=== PATIENT | female | born 1935 | race Caucasian/White ===

== ENCOUNTER 2017-10-02 21:52 | Inpatient (IN) ==
[2017-10-03] MEDS ORDERED: Naloxone 0.4 MG/ML INJ IVP PRN (00:38)
[2017-10-03] MEDS ORDERED: Lacri-Lube 3.5 GM TUBE BOTH EYES PRN (00:39)
--- NOTE | 2017-10-03 00:56 | Internal Med History&Physical ---
<Amisha Anguiano - Last Filed: 10/03/17 02:51> Date of Encounter: 10/03/17 Time of Encounter: 00:55 Assessment and Plan (1) Acute respiratory failure Current visit: No Status: Acute Patient presented to [place] ED complaining of 3 days increased shortness of breath along and cough with sputum production. In the ED she developed respiratory distress and was then intubated. This is most likely secondary to community acquired pneumonia Continue full mechanical ventilatory support ABG pending repeat CXR in AM consult pulmonology Qualifiers: Respiratory failure complication: hypoxia Qualified Code(s): J96.01 - Acute respiratory failure with hypoxia (2) Pneumonia Current visit: Yes Status: Suspected Likely community acquired pneumonia CXR demonstrated bronchial wall thickening that is consistent with edema or atypical infection. WBC 17.1 plan: Levaquin Solu-Medrol Legionella and strep pneumoniae pending respiratory infectious panel pending sputum culture pending from [place] ED repeat CXR in AM Qualifiers: Pneumonia type: due to Pneumococcus Laterality: bilateral Lung location: lower lobe of lung Qualified Code(s): J13 - Pneumonia due to Streptococcus pneumoniae (3) Sepsis Current visit: Yes Status: Suspected Most likely secondary to community acquired pneumonia. Received aggressive IVF hydration at [place] ED. 2 SIRS: tachycardia, WBC 17.1 afebrile, lactic acid 1.7 caution with IVF due to CHF Blood cultures and sputum culture taken at [place] ED, will await those results. Continue IV Levaquin Qualifiers: Sepsis type: Pneumococcus Qualified Code(s): A40.3 - Sepsis due to Streptococcus pneumoniae (4) SHARRI (acute kidney injury) Current visit: Yes Status: Acute SHARRI most likely prerenal due to dehydration. Creatinine 1.34 monitor I&O avoid nephrotoxic agents monitor serum creatinine (5) COPD (chronic obstructive pulmonary disease) Current visit: Yes Status: Acute History of COPD. Uses oxygen occasionally at night. Ordered albuterol, Symbicort, Solu-Medrol Qualifiers: COPD type: chronic bronchitis Chronic bronchitis type: unspecified Qualified Code(s): J42 - Unspecified chronic bronchitis (6) Hypertension, essential Current visit: No Status: Acute History of hypertension taking lisinopril holding lisinopril due to a SHARRI and low BP (7) Atrial fibrillation Current visit: No Status: Acute History of A fib on anticoagulation with xarelto and rate control with Cardizem holding Cardizem due to low blood pressure. HR 71 Continue xarelto Qualifiers: Atrial fibrillation type: unspecified Qualified Code(s): I48.91 - Unspecified atrial fibrillation (8) CHF (congestive heart failure) Current visit: Yes Status: Acute Chronic CHF diastolic. Not an exacerbation ECHO 2015 LVEF 50% holding Lasix due to SHARRI BNP pending Qualifiers: Heart failure type: diastolic Heart failure chronicity: chronic Qualified Code(s): I50.32 - Chronic diastolic (congestive) heart failure (9) DVT prophylaxis Current visit: No Status: Acute Continue homes xarelto Internal Medicine - H&P: HPI Chief complaint: Dyspnea Admitted From: Hospital to Hospital Transfer Plans for Post Hospital Care: Home History of present illness: Ms. Younger is a 82 year old female with PMH COPD, Afib on anticoagulation, CHF, HTN presented to [facility] as a transfer from [place] [facility] due to acute respiratory distress requiring intubation. Upon examination she is intubated however her son and daughter at bedside and are able to give the history. She had gone to the ED complaining of 3 days of shortness of breath. She also reported increased cough with sputum production and sore throat. Her daughter stated that she had given her mother Tylenol severe cold and flu but it did not provide relief. Her daughter reported that the patient did not complaining of chest pain, palpitations, fever, chills, nausea, vomiting, abdominal pain, diarrhea, melena. She is on 2 L of oxygen occasionally at night. She denied history of sick contacts, hospitalizations, falls. Her last hospitalization was 2 years ago for pneumonia. She has gotten her flu and pneumonia vaccination. Her son and daughter report that she has a full code. Past Med Surg Social Fam HX - Past Medical History Medical history: atrial fibrillation, CHF, COPD, hypertension, osteoporosis Psychiatric history: no psych history - Past Surgical History Surgical History: non-contributory - Social History Smoking Status: Former smoker Smokeless Tobacco Status: No Alcohol use: none Drug use: none - Family History Mother Hx Family Cardiac Disorders: Yes (CHF) Internal Medicine - H&P: Meds Lisinopril [Zestril] 20 mg PO DAILY 12/26/15 [History] traMADol [Ultram] 50 mg PO TID 12/26/15 [History] Rivaroxaban [Xarelto] 20 mg PO DAILY #30 tablet 12/30/15 [Rx] Diltiazem CD (24hr) [Cardizem CD] 240 mg PO DAILY #30 cap.er.24h 12/31/15 [Rx] Albuterol Sulfate [Ventolin Hfa] 10/02/17 [History] Furosemide [Lasix] 10/02/17 [History] Umeclidinium Brm/Vilanterol Tr [Anoro Ellipta 62.5-25 Mcg INH] 10/02/17 [ History] 3 Allergy/AdvReac Type Severity Reaction Status Date / Time Penicillins [PCN] Allergy Rash Verified 12/26/15 13:41 ROS unobtainable: due to mental status All Systems PM: A 10-system review of systems was performed and is negative for pertinent findings except as documented above in the HPI. - Constitutional Vitals: Temp Pulse Resp BP Pulse Ox 98.8 F 86 16 93/45 100 10/03/17 00:30 10/03/17 00:30 10/03/17 00:39 10/03/17 00:39 10/03/17 00:39 General appearance: Present: A&O X 0, no acute distress - Head Head exam: Present: atraumatic, normocephalic - Respiratory Respiratory exam: Present: decreased breath sounds, CTAB. Absent: rales, rhonchi, wheezes - Cardiovascular Cardiovascular exam: Present: irregular rhythm. Absent: clicks - GI/Abdominal GI/Abdominal exam: Present: normal bowel sounds, soft. Absent: distended, firm - Extremities Exam Extremities exam: Present: normal inspection. Absent: cyanotic - Skin Skin exam: Present: dry, intact <Maryuri Espinosa - Last Filed: 10/03/17 03:43> Date of Encounter: 10/03/17 Time of Encounter: 01:45 Internal Medicine - H&P: HPI History of present illness: Ms. Younger is a 82 year old female All Systems PM: A 10-system review of systems was performed and is negative for pertinent findings except as documented above in the HPI. - Constitutional Vitals: Temp Pulse Resp BP Pulse Ox 98.8 F 71 12 99/41 100 10/03/17 00:30 10/03/17 03:00 10/03/17 03:18 10/03/17 03:18 10/03/17 03:18 Internal Med - H&P Results - ABG Interpretation ABG results: 10/03/17 03:28 ABG pH 7.26 L ABG pCO2 60 H ABG pO2 446 H ABG HCO3 27 ABG Total CO2 29 H ABG O2 Saturation 100 H ABG Base Excess -1 - Attending Attestation I examined this patient and my medical decision-making was reviewed with the Resident Physician, Amisha Anguiano. I agree with the documented findings, disposition and treatment plan as described with any changes as documented below 82-year-old female patient with history of essential hypertension, atrial fibrillation on anticoagulation with Xarelto, congestive heart failure presented to the ER at [facility] with complaints of shortness of breath. Symptoms have been ongoing for the past 3 days but yesterday morning , her daughter noted that she appeared to be much more weak and sicker. As such she was convinced to come to the ER. In the event hypoxemic and was placed on BiPAP. Her symptoms did not improve and she seemed to be tiring out and so was intubated and transferred over here for admission. She is presently unable to provide history as she is intubated and sedated. History is being obtained through ED records and her family was present at bedside. She is on home oxygen at 2 L that she uses occasionally at night. She has not had any recent hospitalizations. On examination, patient is sedated, ET tube is in place. S1 and S2 normal irregularly irregular rhythm. Lungs appear clear. No wheezes audible. Chest x-ray shows bibasilar infiltrates concerning for edema or pneumonia. Acute hypoxic respiratory failure: Continue vent management. Sedation with propofol and fentanyl. High risk for complications. Sepsis due to bilateral pneumonia: Continue IV antibiotics. Follow culture results. Pneumonia: Most likely community-acquired. Will check urine strep and Legionella antigens. Follow culture results. Continue Levaquin. Chronic congestive heart failure: Does not appear to be in acute exacerbation. Will check BNP and 2-D echocardiogram. Atrial fibrillation: Patient is in A. fib. Rate controlled. On anticoagulation with Xarelto. Will continue. Acute kidney injury: Patient appears to be in mild acute kidney injury. Monitor renal function. Gentle hydration. Avoid nephrotoxic agents. Critical care time 35 minutes
[2017-10-03] MEDS ORDERED: Levofloxacin 500 MG/100 ML 500 MG/100 ML BAG IVPB SCH (01:00)
[2017-10-03] MEDS: FentaNYL (PF) 1,000 MCG in 0.9 % Sodium Chloride 80 ML IVC SCH ×3 (01:30→22:45)
[2017-10-03] MEDS ORDERED: Ringers Solution, Lactated 1,000 ML IVC SCH (02:00)
--- NOTE | 2017-10-03 03:30 | Event Note ---
Date of Encounter: 10/03/17 Time of Encounter: 01:45 I examined this patient and my medical decision-making was reviewed with the Resident Physician, Amisha Anguiano. I agree with the documented findings, disposition and treatment plan as described with any changes as documented below 82-year-old female patient with history of essential hypertension, atrial fibrillation on anticoagulation with Xarelto, congestive heart failure presented to the ER at [facility] with complaints of shortness of breath. Symptoms have been ongoing for the past 3 days but yesterday morning , her daughter noted that she appeared to be much more weak and sicker. As such she was convinced to come to the ER. In the event hypoxemic and was placed on BiPAP. Her symptoms did not improve and she seemed to be tiring out and so was intubated and transferred over here for admission. She is presently unable to provide history as she is intubated and sedated. History is being obtained through ED records and her family was present at bedside. She is on home oxygen at 2 L that she uses occasionally at night. She has not had any recent hospitalizations. On examination, patient is sedated, ET tube is in place. S1 and S2 normal irregularly irregular rhythm. Lungs appear clear. No wheezes audible. Chest x-ray shows bibasilar infiltrates concerning for edema or pneumonia. Acute hypoxic respiratory failure: Continue vent management. Sedation with propofol and fentanyl. High risk for complications. Sepsis due to bilateral pneumonia: Continue IV antibiotics. Follow culture results. Pneumonia: Most likely community-acquired. Will check urine strep and Legionella antigens. Follow culture results. Continue Levaquin. Chronic congestive heart failure: Does not appear to be in acute exacerbation. Will check BNP and 2-D echocardiogram. Atrial fibrillation: Patient is in A. fib. Rate controlled. On anticoagulation with Xarelto. Will continue. Acute kidney injury: Patient appears to be in mild acute kidney injury. Monitor renal function. Gentle hydration. Avoid nephrotoxic agents.
[2017-10-03 03:38] LABS: ABG Base Excess -1 mEq/L (-2 to 3); ABG HCO3 27 mEq/L (21-27); ABG Oxygen Saturation 100 % (95-98); ABG PCO2 60 mmHg (35-45); ABG PH 7.26 pH Units (7.32-7.45); ABG PO2 446 mmHg (85-104); ABG TCO2 29 mEq/L (20-26); Blood Gas Modality PRVC; Blood Gas PEEP 5 cm H2O; Blood Gas Respiration Rate 12; Blood Gas VT 500 cc
[2017-10-03 04:36] LABS: Adenovirus Not Detected (Not Detect); Bordetella Pertussis Not Detected (Not Detect); Coronavirus 229E Not Detected (Not Detect); Coronavirus HKU1 Not Detected (Not Detect); Coronavirus NL63 Not Detected (Not Detect); Coronavirus OC43 Not Detected (Not Detect); Human Metapneumovirus Not Detected (Not Detect); Human Rhinovirus/Enterovirus Not Detected (Not Detect); Influenza A Subtype 2009 H1 Not Detected (Not Detect); Influenza A Untypeable Not Detected (Not Detect); Influenza B Not Detected (Not Detect); Parainfluenza Virus 1 Not Detected (Not Detect); Parainfluenza Virus 2 Not Detected (Not Detect); Parainfluenza Virus 3 Not Detected (Not Detect); Parainfluenza Virus 4 Not Detected (Not Detect); Respiratory Syncytial Virus Not Detected (Not Detect)
[2017-10-03 04:37] LABS: Chlamydophila pneumoniae Not Detected (Not Detect); Mycoplasma pneumoniae Not Detected (Not Detect)
[2017-10-03 04:47] LABS: Hematocrit 36.2 % (35.3-44.9); Hemoglobin 11.3 g/dL (11.5-15.4); Immature Granulocytes % 0.4 % (0-4); Lymphocytes % 7.6 %; Mean Corpuscular HGB Conc 31.2 g/dL (31.6-35.5); Mean Corpuscular Hemoglobin 29.1 pg (28.0-33.3); Mean Corpuscular Volume 93.3 fL (83.0-100.0); Monocytes % 4.2 %; Platelet Count 213 K/mcL (140-400); Red Blood Count 3.88 M/mcL (3.82-4.97); Red Cell Distribution Width 14.9 % (11.5-14.5); Segmented Neutrophils % 87.6 %
[2017-10-03 04:48] LABS: Basophils % 0.2 %; Lymphocytes # 0.9 K/mcL (0.6-4.6); Monocytes # 0.5 K/mcL (0.0-1.3)
[2017-10-03 04:56] LABS: Neutrophils # 10.3 K/mcL (1.6-8.9)
[2017-10-03] MEDS: methylPREDNISolone 125 MG/2 ML VIAL IM SCH ×3 (05:06→17:49)
[2017-10-03 05:15] LABS: Platelet Estimate Normal (Normal)
[2017-10-03 05:19] LABS: Calcium 8.8 mg/dL (8.6-10.3); Potassium 5.1 mEq/L (3.5-5.1)
[2017-10-03 07:52] LABS: Albumin 3.1 g/dL (3.5-5.7); Albumin/Globulin Ratio 0.9 (1.1-2.2); Bilirubin,Direct 0.1 mg/dL (0.0-0.2); Bilirubin,Indirect 0.2 mg/dL (0.0-1.2); Bilirubin,Total 0.3 mg/dL (0.3-1.0); Globulin 3.3 g/dL (2.4-3.5); Total Protein 6.4 g/dL (6.4-8.9)
--- NOTE | 2017-10-03 07:57 | Pulmonology Consult Note ---
<Heriberto Hyman - Last Filed: 10/03/17 17:26> Date of Encounter: 10/03/17 Time of Encounter: 07:30 Assessment and Plan (1) Acute respiratory failure Current Visit: No Status: Acute CXR shows marked change in pulmonary edema over 8 hours Echo pending to workup cardiogenic cause Treating for CAP on Levaquin monotherapy ABG pH 7.26; PCO2 60 Vent Settings: Decreased tidal volume to 440 Increased RR to 18 Minute ventilation to 7.0 Monitoring PCO2, every 10 drop in PCO2, 0.08 rise in pH Qualifiers: Respiratory failure complication: hypoxia Qualified Code(s): J96.01 - Acute respiratory failure with hypoxia (2) Pneumonia Current Visit: Yes Status: Suspected On Levaquin monotherapy Bloodx2, urine, sputum cultures pending Negative respiratory panel Qualifiers: Pneumonia type: due to Pneumococcus Laterality: bilateral Lung location: lower lobe of lung Qualified Code(s): J13 - Pneumonia due to Streptococcus pneumoniae (3) Sepsis Current Visit: Yes Status: Suspected Lactic Acid 1.7 10/[address] 11.7 (17.1) 99.1 temp Qualifiers: Sepsis type: Pneumococcus Qualified Code(s): A40.3 - Sepsis due to Streptococcus pneumoniae (4) Acetaminophen overdose Current Visit: Yes Status: Suspected Monitoring hepatic panel (negative after initial assessment, repeating after 24hrs, per hx may have taken large amount of acetaminophen, ordered salicylate level as well) Started prophylaxis (oral version) with loading 140mg/kg; and maintenance dose 70mg/kg over 4 hours x 17 doses Qualifiers: Encounter type: initial encounter Injury intent: accidental or unintentional Qualified Code(s): T39.1X1A - Poisoning by 4-Aminophenol derivatives, accidental (unintentional), initial encounter (5) SHARRI (acute kidney injury) Current Visit: Yes Status: Acute Bolus 1L NS; monitoring sodium and chloride, UOP (6) CHF (congestive heart failure) Current Visit: Yes Status: Acute Chronic, BNP low 300s. Qualifiers: Heart failure type: diastolic Heart failure chronicity: chronic Qualified Code(s): I50.32 - Chronic diastolic (congestive) heart failure (7) COPD (chronic obstructive pulmonary disease) Current Visit: Yes Status: Acute Has O2 at home uses occasionally at night per chart review. Cont RT with albuterol, symbicort, steroid Qualifiers: COPD type: chronic bronchitis Chronic bronchitis type: unspecified Qualified Code(s): J42 - Unspecified chronic bronchitis (8) Atrial fibrillation Current Visit: No Status: Acute Continuing Xarelto 15mg; currently holding rate control in setting of recent hypotension Qualifiers: Atrial fibrillation type: unspecified Qualified Code(s): I48.91 - Unspecified atrial fibrillation (9) Hypertension, essential Current Visit: No Status: Acute Chronic, holding antihypertensives in setting of recent hypotension. (10) DVT prophylaxis Current Visit: No Status: Acute Continuing Xarelto 15mg daily History of Present Illness Consult date: 10/03/17 Requesting physician: Maryuri Espinosa Reason for consult: dyspnea, hypoxemia, pneumonia Chief complaint: Elyssa History of present illness: Interval Hx: Carri Younger 82F, Full Code PMH HTN, afib on Xarelto, CHF, has 2L O2 that she occasionally uses at night Presented to [place] [facility] with 3 days of shortness of breath and fatigue. Patient found to be hypoxemic and placed on bipap, continued to tire on bipap without improvement of symptoms so was intubated; subsequently transferred to [facility] [place] Received 200mL prior to transfer. CXR shows bibasilar infiltrates. Continuing vent management, sedation with propofol and fentanyl. Patient seen and evaluated, she is intubated and sedated. Past Med Surg Social Fam HX - Past Medical History Medical history: atrial fibrillation, CHF, COPD, hypertension, osteoporosis Psychiatric history: no psych history - Past Surgical History Surgical History: non-contributory - Social History Smoking Status: Former smoker Smokeless Tobacco Status: No Alcohol use: none Drug use: none - Family History Mother Hx Family Cardiac Disorders: Yes (CHF) Medications and Allergies Lisinopril [Zestril] 20 mg PO DAILY 12/26/15 [History] traMADol [Ultram] 50 mg PO TID PRN 12/26/15 [History] Rivaroxaban [Xarelto] 20 mg PO DAILY #30 tablet 12/30/15 [Rx] Albuterol Sulfate [Ventolin Hfa] 2 puff IH Q4H PRN 10/02/17 [History] Furosemide [Lasix] 20 mg PO DAILY PRN 10/02/17 [History] Umeclidinium Brm/Vilanterol Tr [Anoro Ellipta 62.5-25 Mcg INH] 1 puff IH DAILY 10/02/17 [History] Diltiazem HCl [Diltiazem 24Hr Cd] 360 mg PO DAILY 10/03/17 [History] 3 Allergy/AdvReac Type Severity Reaction Status Date / Time Penicillins [PCN] Allergy Rash Verified 12/26/15 13:41 ROS unobtainable: due to endotracheal tube All Systems: The remainder of the systems were reviewed and are negative Physical Examination Vital Signs: Vital Signs, Last 4 Hours Temp Pulse Resp BP Pulse Ox 10/03/17 07:41 99.1 F 10/03/17 07:30 89 18 108/62 100 10/03/17 06:00 79 16 103/62 96 10/03/17 05:41 14 96/47 100 10/03/17 05:00 65 12 95/58 97 10/03/17 04:46 98.1 F 10/03/17 04:00 77 12 97/41 98 General appearance: other (intubated and sedated) Eyes: nonicteric ENT: oropharynx moist Neck: supple Effort: other (mechanically ventilated) Auscultation: bilateral: diminished breath sounds (does not sound vascularly congested) Cardiovascular: irregular rhythm (HR in mid 80s to 90s) Integumentary: normal Extremities: no cyanosis Musculoskeletal: no deformities Ventilator Settings Ventilator Settings: Ventilator Settings, Last 8 Hours Ventilator Mode VC+ Ventilator Mode VC+ Ventilator Mode VC+ Ventilator Mode VC+ Ventilator Mode VC+ Ventilator Mode VC+ Ventilator Mode VC+ Ventilator Mode VC+ Ventilator Mode VC+ Ventilator Mode VC+ Ventilator Mode VC+ Ventilator Mode VC+ Ventilator Tidal Volume 500 Setting Ventilator Tidal Volume 500 Setting Ventilator Tidal Volume 500 Setting Ventilator Tidal Volume 500 Setting Ventilator Tidal Volume 500 Setting Ventilator Tidal Volume 500 Setting Ventilator Tidal Volume 500 Setting Ventilator Tidal Volume 500 Setting Ventilator Tidal Volume 500 Setting Ventilator Tidal Volume 500 Setting Ventilator Tidal Volume 500 Setting Ventilator Tidal Volume 500 Setting Ventilator Respiratory Rate 12 Setting Ventilator Respiratory Rate 12 Setting Ventilator Respiratory Rate 12 Setting Ventilator Respiratory Rate 12 Setting Ventilator Respiratory Rate 12 Setting Ventilator Respiratory Rate 12 Setting Ventilator Respiratory Rate 12 Setting Ventilator Respiratory Rate 12 Setting Ventilator Respiratory Rate 12 Setting Ventilator Respiratory Rate 12 Setting Ventilator Respiratory Rate 12 Setting Ventilator Respiratory Rate 12 Setting Actual Respiratory Rate 14 Actual Respiratory Rate 14 Actual Respiratory Rate 14 Actual Respiratory Rate 12 Actual Respiratory Rate 16 Actual Respiratory Rate 12 Actual Respiratory Rate 16 Actual Respiratory Rate 16 Actual Respiratory Rate 16 Actual Respiratory Rate 16 Actual Respiratory Rate 12 Positive End Expiratory 5 Pressure Positive End Expiratory 5 Pressure Positive End Expiratory 5 Pressure Positive End Expiratory 5 Pressure Positive End Expiratory 5 Pressure Positive End Expiratory 5 Pressure Positive End Expiratory 5 Pressure Positive End Expiratory 5 Pressure Positive End Expiratory 5 Pressure Positive End Expiratory 5 Pressure Positive End Expiratory 5 Pressure Positive End Expiratory 5 Pressure Peak Inspiratory Airway 38 Pressure Peak Inspiratory Airway 39 Pressure Peak Inspiratory Airway 39 Pressure Peak Inspiratory Airway 33 Pressure Peak Inspiratory Airway 33 Pressure Peak Inspiratory Airway 42 Pressure Peak Inspiratory Airway 34 Pressure Peak Inspiratory Airway 34 Pressure Peak Inspiratory Airway 34 Pressure Peak Inspiratory Airway 34 Pressure Peak Inspiratory Airway 35 Pressure Results - Laboratory Findings CBC and BMP: 10/03/17 04:27 10/03/17 04:27 ABG ABG pH 7.26 pH Units (7.32-7.45) L 10/03/17 03:28 ABG pCO2 60 mmHg (35-45) H 10/03/17 03:28 ABG pO2 446 mmHg (85-104) H 10/03/17 03:28 ABG O2 Saturation 100 % (95-98) H 10/03/17 03:28 Abnormal lab findings: Abnormal lab results WBC 11.7 K/mcL (4.3-11.1) H 10/03/17 04:27 Hgb 11.3 g/dL (11.5-15.4) L 10/03/17 04:27 MCHC 31.2 g/dL (31.6-35.5) L 10/03/17 04:27 RDW 14.9 % (11.5-14.5) H 10/03/17 04:27 Neutrophils # 10.3 K/mcL (1.6-8.9) H 10/03/17 04:27 ABG pH 7.26 pH Units (7.32-7.45) L 10/03/17 03:28 ABG pCO2 60 mmHg (35-45) H 10/03/17 03:28 ABG pO2 446 mmHg (85-104) H 10/03/17 03:28 ABG Total CO2 29 mEq/L (20-26) H 10/03/17 03:28 ABG O2 Saturation 100 % (95-98) H 10/03/17 03:28 Sodium 135 mEq/L (136-145) L 10/03/17 04:27 Carbon Dioxide 22 mEq/L (23-29) L 10/03/17 04:27 BUN 45 mg/dL (8-23) H 10/03/17 04:27 Creatinine 1.67 mg/dL (0.60-1.20) H 10/03/17 04:27 Est GFR ( Amer) 36 (> 60) L 10/03/17 04:27 Est GFR (Non-Af Amer) 30 (> 60) L 10/03/17 04:27 BUN/Creatinine Ratio 27 (6-26) H 10/03/17 04:27 Glucose 166 mg/dL (70-105) H 10/03/17 04:27 AST 10 Units/L (13-39) L 10/03/17 04:27 Alkaline Phosphatase 111 Units/L (34-104) H 10/03/17 04:27 B-Natriuretic Peptide 306 pg/mL (Less than 100) H 10/03/17 04:27 Albumin 3.1 g/dL (3.5-5.7) L 10/03/17 04:27 Albumin/Globulin Ratio 0.9 (1.1-2.2) L 10/03/17 04:27 - Clinical Findings Intake & Output: Intake & Output 10/02/17 10/02/17 10/03/17 15:59 23:59 07:59 Intake Total 350 / 350 Output Total 50 / 50 Balance 300 / 300 Weight 75.3 kg Consult Discharge Plan - Plan Referrals: Karlee Anguiano, DIRECTOR OF STATE [Primary Care Provider] - <Jack Cabello - Last Filed: 10/03/17 23:04> Date of Encounter: 10/03/17 All Systems: The remainder of the systems were reviewed and are negative Physical Examination Vital Signs: Vital Signs, Last 4 Hours Temp Pulse Resp BP Pulse Ox 10/03/17 22:00 86 18 151/76 96 10/03/17 21:23 18 131/87 100 10/03/17 21:00 86 18 131/87 100 10/03/17 20:21 98.5 F 10/03/17 20:00 101 18 128/66 98 10/03/17 19:43 19 137/94 94 10/03/17 19:38 95 Ventilator Settings Ventilator Settings: Ventilator Settings, Last 8 Hours Ventilator Mode VC+ Ventilator Mode VC+ Ventilator Mode VC+ Ventilator Mode VC+ Ventilator Mode VC+ Ventilator Mode VC+ Ventilator Mode VC+ Ventilator Mode VC+ Ventilator Mode VC+ Ventilator Mode VC+ Ventilator Tidal Volume 440 Setting Ventilator Tidal Volume 440 Setting Ventilator Tidal Volume 440 Setting Ventilator Tidal Volume 440 Setting Ventilator Tidal Volume 440 Setting Ventilator Tidal Volume 440 Setting Ventilator Tidal Volume 440 Setting Ventilator Tidal Volume 440 Setting Ventilator Tidal Volume 440 Setting Ventilator Tidal Volume 440 Setting Ventilator Tidal Volume 440 Setting Ventilator Respiratory Rate 18 Setting Ventilator Respiratory Rate 18 Setting Ventilator Respiratory Rate 18 Setting Ventilator Respiratory Rate 18 Setting Ventilator Respiratory Rate 18 Setting Ventilator Respiratory Rate 18 Setting Ventilator Respiratory Rate 18 Setting Ventilator Respiratory Rate 18 Setting Ventilator Respiratory Rate 18 Setting Ventilator Respiratory Rate 18 Setting Ventilator Respiratory Rate 18 Setting Actual Respiratory Rate 18 Actual Respiratory Rate 18 Actual Respiratory Rate 18 Actual Respiratory Rate 18 Actual Respiratory Rate 19 Actual Respiratory Rate 96 Actual Respiratory Rate 25 Actual Respiratory Rate 20 Actual Respiratory Rate 18 Actual Respiratory Rate 18 Positive End Expiratory 5 Pressure Positive End Expiratory 5 Pressure Positive End Expiratory 5 Pressure Positive End Expiratory 5 Pressure Positive End Expiratory 5 Pressure Positive End Expiratory 5 Pressure Positive End Expiratory 5 Pressure Positive End Expiratory 5 Pressure Positive End Expiratory 5 Pressure Positive End Expiratory 5 Pressure Positive End Expiratory 5 Pressure Peak Inspiratory Airway 31 Pressure Peak Inspiratory Airway 30 Pressure Peak Inspiratory Airway 34 Pressure Peak Inspiratory Airway 33 Pressure Peak Inspiratory Airway 30 Pressure Peak Inspiratory Airway 31 Pressure Peak Inspiratory Airway 31 Pressure Peak Inspiratory Airway 32 Pressure Peak Inspiratory Airway 33 Pressure Peak Inspiratory Airway 33 Pressure Results - Laboratory Findings CBC and BMP: 10/03/17 04:27 10/03/17 04:27 ABG ABG pH 7.26 pH Units (7.32-7.45) L 10/03/17 03:28 ABG pCO2 60 mmHg (35-45) H 10/03/17 03:28 ABG pO2 446 mmHg (85-104) H 10/03/17 03:28 ABG O2 Saturation 100 % (95-98) H 10/03/17 03:28 PT/INR, D-dimer PT 16.4 Seconds (9.4-12.1) H 10/03/17 11:03 Abnormal lab findings: Abnormal lab results WBC 11.7 K/mcL (4.3-11.1) H 10/03/17 04:27 Hgb 11.3 g/dL (11.5-15.4) L 10/03/17 04:27 MCHC 31.2 g/dL (31.6-35.5) L 10/03/17 04:27 RDW 14.9 % (11.5-14.5) H 10/03/17 04:27 Neutrophils # 10.3 K/mcL (1.6-8.9) H 10/03/17 04:27 PT 16.4 Seconds (9.4-12.1) H 10/03/17 11:03 ABG pH 7.26 pH Units (7.32-7.45) L 10/03/17 03:28 ABG pCO2 60 mmHg (35-45) H 10/03/17 03:28 ABG pO2 446 mmHg (85-104) H 10/03/17 03:28 ABG Total CO2 29 mEq/L (20-26) H 10/03/17 03:28 ABG O2 Saturation 100 % (95-98) H 10/03/17 03:28 Sodium 135 mEq/L (136-145) L 10/03/17 04:27 Carbon Dioxide 22 mEq/L (23-29) L 10/03/17 04:27 BUN 45 mg/dL (8-23) H 10/03/17 04:27 Creatinine 1.67 mg/dL (0.60-1.20) H 10/03/17 04:27 Est GFR ( Amer) 36 (> 60) L 10/03/17 04:27 Est GFR (Non-Af Amer) 30 (> 60) L 10/03/17 04:27 BUN/Creatinine Ratio 27 (6-26) H 10/03/17 04:27 Glucose 166 mg/dL (70-105) H 10/03/17 04:27 Troponin I 0.06 ng/mL (< 0.04) H* 10/03/17 16:39 B-Natriuretic Peptide 306 pg/mL (Less than 100) H 10/03/17 04:27 Serum Total Protein 6.0 g/dL (6.4-8.9) L 10/03/17 21:08 Albumin 2.9 g/dL (3.5-5.7) L 10/03/17 21:08 Albumin/Globulin Ratio 0.9 (1.1-2.2) L 10/03/17 21:08 Salicylates < 5.0 mg/dL (15.0-30.0) L 10/03/17 11:03 Acetaminophen < 1.0 mcg/mL (10-30) L 10/03/17 11:03 - Microbiology Findings Microbiology Findings: Microbiology, Last 48 Hours 10/03/17 09:05 Legionella Antigen - Final Urine,Clean Catch Streptococcus pneumoniae Antigen (M - Final - Clinical Findings Intake & Output: Intake & Output 10/03/17 10/03/17 10/03/17 07:59 15:59 23:59 Intake Total 350 / 350 1200 / 1200 554 / 554 Output Total 50 / 50 200 / 200 350 / 350 Balance 300 / 300 1000 / 1000 204 / 204 Weight 75.3 kg - Attending Attestation I saw and evaluated this patient and my medical decision-making was reviewed with the Resident Physician. I agree with the documented findings, disposition and treatment plan as described except to the extent set forth below. We independently had [id number] contact with the patient I spent 40 minutes of Critical Care time with this patient. It involved decision making of high complexity to assess, manipulate, and support vital organ system failure and/or to prevent further life threatening deterioration of the patient's condition. The time involved in the performance of separately reportable procedures was not counted toward critical care time. Patient seen and examined at bedside Labs, radiology, chart personally reviewed. Management was reviewed during multidisciplinary critical care rounds. LOBBY PORTER:Patient is intubated and sedated will lighten up the sedation not following commands on my exam Pulm: Patient presentation is more towards pulmonary edema than COPD exacerbation low tidal volume strategy acceptable oxygenation and ventilation . To continue with bronchodilators and steroids will descalate the steroids fast . Cards:Patient is hemodynamically stable will start on diuresis as tolerated . FEN-GI: Diet as per dietary Renal:Labs and output reviewed ID:To continue mono therapy levaquin Heme/Onc:DVT prophylaxis Endo: Glucose Monitored Integ/MSK: Skin Care per routine ICU Nursing Protocol to prevent ulcers. Lines: All lines examined without evidence of infection : Dispo: Critically ill CODE: Full Code
[2017-10-03] MEDS: Tiotropium 18 MCG inhalation IH SCH (08:09)
[2017-10-03] MEDS ORDERED: 0.9 % Sodium Chloride 1,000 ML ONE (08:41)
[2017-10-03] MEDS ORDERED: 0.9 % Sodium Chloride 1,000 ML IVC ONE (09:09)
[2017-10-03] MEDS: Chlorhexidine Rinse 15 ML MOUTHWASH MM SCH ×2 (10:06→20:52)
[2017-10-03] MEDS ORDERED: *HR* Acetylcysteine 20% 30 ML VIAL PO ONE (11:30)
[2017-10-03] MEDS ORDERED: *HR* Acetylcysteine 20% 30 ML VIAL GTUBE ONE (12:00)
[2017-10-03 12:04] LABS: INR 1.5; Prothrombin Time 16.4 Seconds (9.4-12.1)
[2017-10-03] MEDS: Pantoprazole 40 MG VIAL IVP SCH (12:12)
[2017-10-03 12:49] LABS: Salicylate < 5.0 mg/dL (15.0-30.0)
[2017-10-03 13:55] LABS: Acetaminophen < 1.0 mcg/mL (10-30)
[2017-10-03] MEDS ORDERED: *HR* Metoprolol 5 MG/5 ML VIAL IVP ONE (15:28)
[2017-10-03] MEDS ORDERED: Ringers Solution, Lactated 500 ML IVC ONE (15:33)
[2017-10-03] MEDS: *HR* Acetylcysteine 20% 30 ML VIAL GTUBE SCH ×2 (16:49→21:22)
[2017-10-03] MEDS ORDERED: *HR* Rivaroxaban 15 MG TABLET PO SCH (17:00)
[2017-10-03] MEDS: *HR* Heparin 5,000 UNIT/ML VIAL SQ SCH (17:52)
[2017-10-03 21:40] LABS: Albumin 2.9 g/dL (3.5-5.7); Albumin/Globulin Ratio 0.9 (1.1-2.2); Bilirubin,Direct 0.1 mg/dL (0.0-0.2); Bilirubin,Indirect 0.2 mg/dL (0.0-1.2); Bilirubin,Total 0.3 mg/dL (0.3-1.0); Globulin 3.1 g/dL (2.4-3.5)
[2017-10-04] MEDS: methylPREDNISolone 125 MG/2 ML VIAL IM SCH ×2 (00:23→06:08)
[2017-10-04] MEDS: *HR* Acetylcysteine 20% 30 ML VIAL GTUBE SCH ×4 (00:25→11:29)
[2017-10-04 05:06] LABS: ABG Base Excess 0 mEq/L (-2 to 3); ABG HCO3 27 mEq/L (21-27); ABG Oxygen Saturation 95 % (95-98); ABG PCO2 50 mmHg (35-45); ABG PH 7.34 pH Units (7.32-7.45); ABG PO2 82 mmHg (85-104); ABG TCO2 28 mEq/L (20-26); Blood Gas Modality PRVC; Blood Gas PEEP 5 cm H2O; Blood Gas Respiration Rate 18; Blood Gas VT 440 cc
[2017-10-04 05:33] LABS: Basophils % 0.3 %; Hematocrit 34.8 % (35.3-44.9); Hemoglobin 10.9 g/dL (11.5-15.4); Lymphocytes # 0.9 K/mcL (0.6-4.6); Lymphocytes % 8.8 %; Mean Corpuscular HGB Conc 31.3 g/dL (31.6-35.5); Mean Corpuscular Hemoglobin 28.7 pg (28.0-33.3); Mean Corpuscular Volume 91.6 fL (83.0-100.0); Mean Platelet Volume 11.8 fL (9.4-12.4); Monocytes # 0.4 K/mcL (0.0-1.3); Monocytes % 3.7 %; Neutrophils # 8.7 K/mcL (1.6-8.9); Nucleated Red Blood Cells 0.2 /100 WBC (0); Platelet Count 210 K/mcL (140-400); Red Cell Distribution Width 14.6 % (11.5-14.5); Segmented Neutrophils % 86.2 %
[2017-10-04 05:59] LABS: BUN/Creatinine Ratio 43 (6-26); Blood Urea Nitrogen 46 mg/dL (8-23); Calcium 9.2 mg/dL (8.6-10.3); Carbon Dioxide 24 mEq/L (23-29); Chloride 108 mEq/L (98-107); Glucose 168 mg/dL (70-105); Osmolality,Calculated 306 (280-300); Potassium 3.5 mEq/L (3.5-5.1); Sodium 140 mEq/L (136-145); eGFR For African Americans > 60 (> 60); eGFR For Non-African Americans 50 (> 60)
[2017-10-04] MEDS: *HR* Heparin 5,000 UNIT/ML VIAL SQ SCH ×2 (06:08→17:40)
[2017-10-04] MEDS: Tiotropium 18 MCG inhalation IH SCH (07:55)
[2017-10-04] MEDS: Chlorhexidine Rinse 15 ML MOUTHWASH MM SCH ×2 (08:02→20:16)
[2017-10-04] MEDS: Pantoprazole 40 MG VIAL IVP SCH (08:02)
[2017-10-04] MEDS: Levofloxacin 750 MG/150 ML 750 MG/150 ML BAG IVPB SCH (08:02)
[2017-10-04] MEDS ORDERED: Furosemide 40 MG/4 ML VIAL IVP ONE (08:44)
--- NOTE | 2017-10-04 09:19 | Pulmonology Progress Note ---
<Heriberto Hyman - Last Filed: 10/04/17 17:22> Date of Encounter: 10/04/17 Time of Encounter: 08:00 Assessment and Plan (1) Acute respiratory failure Current Visit: No Status: Acute Acidosis corrected; continuing mechanical ventilation; tolerated cpap trial though increased afib after 20 minutes (on cardizem drip rather than po now) Continue weaning tomorrow. Continue Levaquin. Qualifiers: Respiratory failure complication: hypoxia Qualified Code(s): J96.01 - Acute respiratory failure with hypoxia (2) Pneumonia Current Visit: Yes Status: Suspected Negative respiratory panel Continuing Levaquin. Cultures pending. Qualifiers: Pneumonia type: due to Pneumococcus Laterality: bilateral Lung location: lower lobe of lung Qualified Code(s): J13 - Pneumonia due to Streptococcus pneumoniae (3) Sepsis Current Visit: Yes Status: Suspected Normal Lactic acid Wt ct improved 10.1 (11.7) Afebrile Qualifiers: Sepsis type: Pneumococcus Qualified Code(s): A40.3 - Sepsis due to Streptococcus pneumoniae (4) Acetaminophen overdose Current Visit: Yes Status: Suspected Endorsed taking 24 "tylenol cough and cold" over two days prior to admission Negative hepatic panel and acetaminophen levels x2; dc'ing NAC prophylaxis Qualifiers: Encounter type: initial encounter Injury intent: accidental or unintentional Qualified Code(s): T39.1X1A - Poisoning by 4-Aminophenol derivatives, accidental (unintentional), initial encounter (5) SHARRI (acute kidney injury) Current Visit: Yes Status: Acute 1.06 (1.67) Diuresis with Lasix 40mg IVP today, monitoring UOP (6) CHF (congestive heart failure) Current Visit: Yes Status: Acute Echo shows 55% LVEF; unremarkable LV wall motion Qualifiers: Heart failure type: diastolic Heart failure chronicity: chronic Qualified Code(s): I50.32 - Chronic diastolic (congestive) heart failure (7) Atrial fibrillation Current Visit: No Status: Acute On heparin SQ (takes Xarelto 15mg at home) started on Cardizem drip Qualifiers: Atrial fibrillation type: unspecified Qualified Code(s): I48.91 - Unspecified atrial fibrillation (8) COPD (chronic obstructive pulmonary disease) Current Visit: Yes Status: Acute Has O2 at home uses occasionally at night per chart review. Cont RT with albuterol, symbicort, steroid Qualifiers: COPD type: chronic bronchitis Chronic bronchitis type: unspecified Qualified Code(s): J42 - Unspecified chronic bronchitis (9) DVT prophylaxis Current Visit: No Status: Acute SQ Heparin, has home Xarelto 15mg Subjective Principal diagnosis: Acute resp failure Interval history: Patient is ventilated, alerts to verbal stimulus. Moderate tidal volumes on CPAP trial. Objective PUL Vital signs: Last Vital Signs Temp 98.1 F 10/04/17 07:28 Pulse 112 10/04/17 09:00 Resp 23 10/04/17 09:00 BP 131/71 10/04/17 09:00 Pulse Ox 98 10/04/17 09:00 General appearance: other (intubated and sedated) Eyes: nonicteric ENT: oropharynx moist Neck: supple Auscultation: bilateral: diminished breath sounds Cardiovascular: irregular rhythm Gastrointestinal: soft, non-tender Extremities: no cyanosis Musculoskeletal: no deformities non-focal exam Ventilator Settings Ventilator Settings: Ventilator Settings, Last 8 Hours Ventilator Mode VC+ Ventilator Mode VC+ Ventilator Mode VC+ Ventilator Mode VC+ Ventilator Mode VC+ Ventilator Mode VC+ Ventilator Mode VC+ Ventilator Mode VC+ Ventilator Mode VC+ Ventilator Mode VC+ Ventilator Mode VC+ Ventilator Tidal Volume 440 Setting Ventilator Tidal Volume 440 Setting Ventilator Tidal Volume 440 Setting Ventilator Tidal Volume 440 Setting Ventilator Tidal Volume 440 Setting Ventilator Tidal Volume 440 Setting Ventilator Tidal Volume 440 Setting Ventilator Tidal Volume 440 Setting Ventilator Tidal Volume 440 Setting Ventilator Tidal Volume 440 Setting Ventilator Tidal Volume 440 Setting Ventilator Respiratory Rate 18 Setting Ventilator Respiratory Rate 18 Setting Ventilator Respiratory Rate 18 Setting Ventilator Respiratory Rate 18 Setting Ventilator Respiratory Rate 18 Setting Ventilator Respiratory Rate 18 Setting Ventilator Respiratory Rate 18 Setting Ventilator Respiratory Rate 18 Setting Ventilator Respiratory Rate 18 Setting Ventilator Respiratory Rate 18 Setting Ventilator Respiratory Rate 18 Setting Actual Respiratory Rate 21 Actual Respiratory Rate 19 Actual Respiratory Rate 18 Actual Respiratory Rate 18 Actual Respiratory Rate 18 Actual Respiratory Rate 19 Actual Respiratory Rate 18 Actual Respiratory Rate 18 Positive End Expiratory 5 Pressure Positive End Expiratory 5 Pressure Positive End Expiratory 5 Pressure Positive End Expiratory 5 Pressure Positive End Expiratory 5 Pressure Positive End Expiratory 5 Pressure Positive End Expiratory 5 Pressure Positive End Expiratory 5 Pressure Positive End Expiratory 5 Pressure Positive End Expiratory 5 Pressure Positive End Expiratory 5 Pressure Peak Inspiratory Airway 37 Pressure Peak Inspiratory Airway 37 Pressure Peak Inspiratory Airway 34 Pressure Peak Inspiratory Airway 37 Pressure Peak Inspiratory Airway 29 Pressure Peak Inspiratory Airway 33 Pressure Peak Inspiratory Airway 29 Pressure Peak Inspiratory Airway 38 Pressure Peak Inspiratory Airway 37 Pressure Peak Inspiratory Airway 38 Pressure Results - Laboratory Findings CBC and BMP: 10/04/17 05:28 10/04/17 05:28 ABG ABG pH 7.34 pH Units (7.32-7.45) 10/04/17 05:01 ABG pCO2 50 mmHg (35-45) H 10/04/17 05:01 ABG pO2 82 mmHg (85-104) L 10/04/17 05:01 ABG O2 Saturation 95 % (95-98) 10/04/17 05:01 PT/INR, D-dimer PT 16.4 Seconds (9.4-12.1) H 10/03/17 11:03 Abnormal lab findings: Abnormal lab results RBC 3.80 M/mcL (3.82-4.97) L 10/04/17 05:28 Hgb 10.9 g/dL (11.5-15.4) L 10/04/17 05:28 Hct 34.8 % (35.3-44.9) L 10/04/17 05:28 MCHC 31.3 g/dL (31.6-35.5) L 10/04/17 05:28 RDW 14.6 % (11.5-14.5) H 10/04/17 05:28 Nucleated RBCs/100 WBC 0.2 /100 WBC (0) H 10/04/17 05:28 PT 16.4 Seconds (9.4-12.1) H 10/03/17 11:03 ABG pCO2 50 mmHg (35-45) H 10/04/17 05:01 ABG pO2 82 mmHg (85-104) L 10/04/17 05:01 ABG Total CO2 28 mEq/L (20-26) H 10/04/17 05:01 Chloride 108 mEq/L (98-107) H 10/04/17 05:28 BUN 46 mg/dL (8-23) H 10/04/17 05:28 Est GFR (Non-Af Amer) 50 (> 60) L 10/04/17 05:28 BUN/Creatinine Ratio 43 (6-26) H 10/04/17 05:28 Glucose 168 mg/dL (70-105) H 10/04/17 05:28 POC Glucose 122 (58-89) H 10/03/17 23:35 Calculated Osmolality 306 (280-300) H 10/04/17 05:28 B-Natriuretic Peptide 306 pg/mL (Less than 100) H 10/03/17 04:27 Serum Total Protein 6.0 g/dL (6.4-8.9) L 10/03/17 21:08 Albumin 2.9 g/dL (3.5-5.7) L 10/03/17 21:08 Albumin/Globulin Ratio 0.9 (1.1-2.2) L 10/03/17 21:08 Salicylates < 5.0 mg/dL (15.0-30.0) L 10/03/17 11:03 Acetaminophen < 1.0 mcg/mL (10-30) L 10/03/17 11:03 - Microbiology Findings Microbiology Findings: Microbiology, Last 48 Hours 10/03/17 09:05 Legionella Antigen - Final Urine,Clean Catch Streptococcus pneumoniae Antigen (M - Final - Clinical Findings Intake & Output: Intake & Output 10/03/17 10/04/17 10/04/17 23:59 07:59 15:59 Intake Total 962 / 962 499 / 499 Output Total 550 / 550 450 / 450 Balance 412 / 412 49 / 49 Weight 75.3 kg Consult Discharge Plan - Plan Referrals: Karlee Anguiano, PIPE THREADING MACHINE OPERATOR [Primary Care Provider] - <Jack Cabello - Last Filed: 10/04/17 22:53> Date of Encounter: 10/04/17 Objective PUL Vital signs: Last Vital Signs Temp 97.1 F L 10/04/17 20:00 Pulse 73 10/04/17 22:00 Resp 18 10/04/17 22:00 BP 148/62 10/04/17 22:00 Pulse Ox 96 10/04/17 22:00 Ventilator Settings Ventilator Settings: Ventilator Settings, Last 8 Hours Ventilator Mode VC+ Ventilator Mode VC+ Ventilator Mode VC+ Ventilator Mode VC+ Ventilator Mode VC+ Ventilator Mode VC+ Ventilator Mode VC+ Ventilator Mode VC+ Ventilator Mode VC+ Ventilator Mode VC+ Ventilator Tidal Volume 440 Setting Ventilator Tidal Volume 440 Setting Ventilator Tidal Volume 440 Setting Ventilator Tidal Volume 440 Setting Ventilator Tidal Volume 440 Setting Ventilator Tidal Volume 440 Setting Ventilator Tidal Volume 440 Setting Ventilator Tidal Volume 440 Setting Ventilator Tidal Volume 440 Setting Ventilator Tidal Volume 440 Setting Ventilator Respiratory Rate 18 Setting Ventilator Respiratory Rate 18 Setting Ventilator Respiratory Rate 18 Setting Ventilator Respiratory Rate 18 Setting Ventilator Respiratory Rate 18 Setting Ventilator Respiratory Rate 18 Setting Ventilator Respiratory Rate 18 Setting Ventilator Respiratory Rate 18 Setting Ventilator Respiratory Rate 18 Setting Ventilator Respiratory Rate 18 Setting Actual Respiratory Rate 18 Actual Respiratory Rate 18 Actual Respiratory Rate 18 Actual Respiratory Rate 18 Actual Respiratory Rate 18 Actual Respiratory Rate 19 Actual Respiratory Rate 18 Positive End Expiratory 5 Pressure Positive End Expiratory 5 Pressure Positive End Expiratory 5 Pressure Positive End Expiratory 5 Pressure Positive End Expiratory 5 Pressure Positive End Expiratory 5 Pressure Positive End Expiratory 5 Pressure Positive End Expiratory 5 Pressure Positive End Expiratory 5 Pressure Positive End Expiratory 5 Pressure Peak Inspiratory Airway 29 Pressure Peak Inspiratory Airway 29 Pressure Peak Inspiratory Airway 28 Pressure Peak Inspiratory Airway 27 Pressure Peak Inspiratory Airway 30 Pressure Peak Inspiratory Airway 33 Pressure Peak Inspiratory Airway 30 Pressure Peak Inspiratory Airway 23 Pressure Peak Inspiratory Airway 30 Pressure Peak Inspiratory Airway 30 Pressure Results - Laboratory Findings CBC and BMP: 10/04/17 05:28 10/04/17 19:24 ABG ABG pH 7.34 pH Units (7.32-7.45) 10/04/17 05:01 ABG pCO2 50 mmHg (35-45) H 10/04/17 05:01 ABG pO2 82 mmHg (85-104) L 10/04/17 05:01 ABG O2 Saturation 95 % (95-98) 10/04/17 05:01 PT/INR, D-dimer PT 16.4 Seconds (9.4-12.1) H 10/03/17 11:03 Abnormal lab findings: Abnormal lab results RBC 3.80 M/mcL (3.82-4.97) L 10/04/17 05:28 Hgb 10.9 g/dL (11.5-15.4) L 10/04/17 05:28 Hct 34.8 % (35.3-44.9) L 10/04/17 05:28 MCHC 31.3 g/dL (31.6-35.5) L 10/04/17 05:28 RDW 14.6 % (11.5-14.5) H 10/04/17 05:28 Nucleated RBCs/100 WBC 0.2 /100 WBC (0) H 10/04/17 05:28 PT 16.4 Seconds (9.4-12.1) H 10/03/17 11:03 ABG pCO2 50 mmHg (35-45) H 10/04/17 05:01 ABG pO2 82 mmHg (85-104) L 10/04/17 05:01 ABG Total CO2 28 mEq/L (20-26) H 10/04/17 05:01 Chloride 108 mEq/L (98-107) H 10/04/17 05:28 BUN 46 mg/dL (8-23) H 10/04/17 05:28 Est GFR (Non-Af Amer) 50 (> 60) L 10/04/17 05:28 BUN/Creatinine Ratio 43 (6-26) H 10/04/17 05:28 Glucose 168 mg/dL (70-105) H 10/04/17 05:28 POC Glucose 122 (58-89) H 10/03/17 23:35 Calculated Osmolality 306 (280-300) H 10/04/17 05:28 B-Natriuretic Peptide 306 pg/mL (Less than 100) H 10/03/17 04:27 Serum Total Protein 6.0 g/dL (6.4-8.9) L 10/03/17 21:08 Albumin 2.9 g/dL (3.5-5.7) L 10/03/17 21:08 Albumin/Globulin Ratio 0.9 (1.1-2.2) L 10/03/17 21:08 Salicylates < 5.0 mg/dL (15.0-30.0) L 10/03/17 11:03 Acetaminophen < 1.0 mcg/mL (10-30) L 10/04/17 12:06 - Microbiology Findings Microbiology Findings: Microbiology, Last 48 Hours 10/03/17 11:40 Urine Culture - Final Urine,Clean Catch No growth. 10/03/17 09:05 Legionella Antigen - Final Urine,Clean Catch Streptococcus pneumoniae Antigen (M - Final - Clinical Findings Intake & Output: Intake & Output 10/04/17 10/04/17 10/04/17 07:59 15:59 23:59 Intake Total 499 / 499 388 / 388 414 / 414 Output Total 450 / 450 1450 / 1450 250 / 250 Balance 49 / 49 -1062 / -1062 164 / 164 - Attending Attestation - Attending Attestation I saw and evaluated this patient and my medical decision-making was reviewed with the Resident Physician. I agree with the documented findings, disposition and treatment plan as described except to the extent set forth below. We independently had [id number] contact with the patient Patient seen and examined at bedside Labs, radiology, chart personally reviewed. Management was reviewed during multidisciplinary critical care rounds. VENEER DEPARTMENT MANAGER:Patient is completely awake and following commands Pulm: Patient presentation is more towards pulmonary edema than COPD exacerbation low tidal volume strategy acceptable oxygenation and ventilation . To continue with bronchodilators and steroids will descalate the steroids fast . To continue gentle diuresis . Patient failed SBT after 2 hrs will try again later Cards:Patient is hemodynamically stable ,on diuresis as tolerated . FEN-GI: Diet as per dietary Renal:Labs and output reviewed ID:To continue mono therapy levaquin Heme/Onc:DVT prophylaxis Endo: Glucose Monitored Integ/MSK: Skin Care per routine ICU Nursing Protocol to prevent ulcers. Lines: All lines examined without evidence of infection : Dispo: Critically ill CODE: Full Code
[2017-10-04] MEDS ORDERED: Ipratropium/Albuterol Neb 3 ML IH PRN (11:07)
[2017-10-04] MEDS: FentaNYL (PF) 1,000 MCG in 0.9 % Sodium Chloride 80 ML IVC SCH ×2 (11:19→21:20)
[2017-10-04] MEDS: methylPREDNISolone 125 MG/2 ML VIAL IVP SCH ×2 (12:15→17:40)
[2017-10-04] MEDS: Dexmedetomidine HCl 400 MCG/100 ML MLS IVC SCH (14:48)
[2017-10-04] MEDS: Ipratropium/Albuterol Neb 3 ML IH SCH ×3 (16:04→23:00)
[2017-10-04] MEDS ORDERED: Insulin LISPRO 300 UNITS/3 ML VIAL SQ SCH (23:45)
[2017-10-04] MEDS ORDERED: Dextrose Gel 15 GM/37.5 ML TUBE PO PRN ×2 (23:54)
[2017-10-04] MEDS ORDERED: *HR* Dextrose 50 % in Water (Syg) 50 ML SYRINGE IVP PRN (23:54)
[2017-10-05] MEDS: methylPREDNISolone 125 MG/2 ML VIAL IVP SCH ×2 (00:18→05:14)
[2017-10-05] MEDS: Ipratropium/Albuterol Neb 3 ML IH SCH ×6 (03:00→23:03)
[2017-10-05] MEDS: Dexmedetomidine HCl 400 MCG/100 ML MLS IVC SCH (04:14)
[2017-10-05 04:16] LABS: Basophils # 0.1 K/mcL (0.0-0.2); Basophils % 0.6 %; Hemoglobin 11.3 g/dL (11.5-15.4); Immature Granulocytes % 2.1 % (0-4); Lymphocytes # 0.9 K/mcL (0.6-4.6); Lymphocytes % 10.2 %; Mean Corpuscular HGB Conc 31.4 g/dL (31.6-35.5); Mean Corpuscular Hemoglobin 28.5 pg (28.0-33.3); Mean Corpuscular Volume 90.9 fL (83.0-100.0); Mean Platelet Volume 11.7 fL (9.4-12.4); Monocytes # 0.2 K/mcL (0.0-1.3); Monocytes % 2.7 %; Neutrophils # 7.1 K/mcL (1.6-8.9); Nucleated Red Blood Cells 0.4 /100 WBC (0); Platelet Count 251 K/mcL (140-400); Red Blood Count 3.96 M/mcL (3.82-4.97); Red Cell Distribution Width 14.6 % (11.5-14.5); Segmented Neutrophils % 84.4 %
[2017-10-05 04:41] LABS: BUN/Creatinine Ratio 45 (6-26); Blood Urea Nitrogen 42 mg/dL (8-23); Calcium 9.5 mg/dL (8.6-10.3); Carbon Dioxide 28 mEq/L (23-29); Chloride 108 mEq/L (98-107); Glucose 266 mg/dL (70-105); Osmolality,Calculated 318 (280-300); Potassium 3.3 mEq/L (3.5-5.1); Sodium 144 mEq/L (136-145); eGFR For African Americans > 60 (> 60); eGFR For Non-African Americans 57 (> 60)
[2017-10-05] MEDS: *HR* Heparin 5,000 UNIT/ML VIAL SQ SCH ×2 (05:14→18:31)
[2017-10-05] MEDS: FentaNYL (PF) 1,000 MCG in 0.9 % Sodium Chloride 80 ML IVC SCH (05:33)
[2017-10-05] MEDS ORDERED: Insulin LISPRO 300 UNITS/3 ML VIAL SQ SCH (06:00)
[2017-10-05] MEDS ORDERED: Potassium Chloride Elixir 20 MEQ/15 ML UDC GTUBE ONE (07:54)
--- NOTE | 2017-10-05 07:57 | Pulmonology Progress Note ---
<Abhijeet Crystal - Last Filed: 10/05/17 13:36> Date of Encounter: 10/05/17 Time of Encounter: 08:45 Assessment and Plan (1) Acute respiratory failure Current Visit: Yes Status: Acute Acidosis corrected; The patient had good cpap trial We were able to successfully extubate the patient this morning Continue Levaquin Qualifiers: Respiratory failure complication: hypoxia Qualified Code(s): J96.01 - Acute respiratory failure with hypoxia (2) Pneumonia Current Visit: Yes Status: Suspected Negative respiratory panel Continuing Levaquin. There is no growth on cultures Qualifiers: Pneumonia type: due to Pneumococcus Laterality: bilateral Lung location: lower lobe of lung Qualified Code(s): J13 - Pneumonia due to Streptococcus pneumoniae (3) Sepsis Current Visit: Yes Status: Suspected Sepsis secondary to pna, improved WBC 8.4, afebrile and improved HR and RR We will continue to monitor, watch vitals Qualifiers: Sepsis type: Pneumococcus Qualified Code(s): A40.3 - Sepsis due to Streptococcus pneumoniae (4) SHARRI (acute kidney injury) Current Visit: Yes Status: Acute Acute kidney Injury secondary to septic shock Serum Cr 0.94, eGFR 57. Urine output 150 over 24hr We will avoid nephrotoxic agents (5) CHF (congestive heart failure) Current Visit: Yes Status: Acute HFpEF, mild decompensation Echo shows LVEF 55%, mild volume overload Patient did not respond to lasix, we will try bumex I/O 4490/3250, B+1240mL Maintain strict I/Os Qualifiers: Heart failure type: diastolic Heart failure chronicity: chronic Qualified Code(s): I50.32 - Chronic diastolic (congestive) heart failure (6) Atrial fibrillation Current Visit: Yes Status: Acute On heparin SQ (takes Xarelto 15mg at home) started on Cardizem drip We will consider transitioning to PO cardizem if patient passes bedside swallow eval Qualifiers: Atrial fibrillation type: unspecified Qualified Code(s): I48.91 - Unspecified atrial fibrillation (7) COPD (chronic obstructive pulmonary disease) Current Visit: Yes Status: Acute Has O2 at home uses occasionally at night per chart review. Cont RT with albuterol, symbicort, steroid BiPAP overnight as needed Qualifiers: COPD type: chronic bronchitis Chronic bronchitis type: unspecified Qualified Code(s): J42 - Unspecified chronic bronchitis (8) DVT prophylaxis Current Visit: No Status: Acute Subjective Principal diagnosis: Acute resp failure Interval history: The patient is extubated and in good spirits. She says that she's very happy to have the tube out, and to be awake. When asked about concerns, she says that she 's very thirsty, and would like to drink. She otherwise has no acute complaints. Objective PUL Vital signs: Last Vital Signs Temp 97.6 F 10/05/17 07:28 Pulse 74 10/05/17 07:45 Resp 21 10/05/17 07:45 BP 113/95 10/05/17 07:45 Pulse Ox 92 10/05/17 07:45 General appearance: no acute distress Eyes: nonicteric ENT: oropharynx moist Mallampati (class): 2 Neck: supple Effort: normal Auscultation: bilateral: clear, diminished breath sounds Cardiovascular: regular rate and rhythm Gastrointestinal: normoactive bowel sounds, soft, non-tender Integumentary: normal Extremities: no cyanosis, no edema, no clubbing Musculoskeletal: no deformities normal mental status, non-focal exam mood appropriate, affect normal Ventilator Settings Ventilator Settings: Ventilator Settings, Last 8 Hours Ventilator Mode CPAP Ventilator Mode CPAP Ventilator Mode CPAP Ventilator Mode VC+ Ventilator Mode VC+ Ventilator Mode VC+ Ventilator Mode VC+ Ventilator Mode VC+ Ventilator Mode VC+ Ventilator Mode VC+ Ventilator Mode VC+ Ventilator Mode VC+ Ventilator Tidal Volume 440 Setting Ventilator Tidal Volume 440 Setting Ventilator Tidal Volume 440 Setting Ventilator Tidal Volume 440 Setting Ventilator Tidal Volume 440 Setting Ventilator Tidal Volume 440 Setting Ventilator Tidal Volume 440 Setting Ventilator Tidal Volume 440 Setting Ventilator Tidal Volume 440 Setting Ventilator Respiratory Rate 18 Setting Ventilator Respiratory Rate 18 Setting Ventilator Respiratory Rate 18 Setting Ventilator Respiratory Rate 18 Setting Ventilator Respiratory Rate 18 Setting Ventilator Respiratory Rate 18 Setting Ventilator Respiratory Rate 18 Setting Ventilator Respiratory Rate 18 Setting Ventilator Respiratory Rate 18 Setting Actual Respiratory Rate 21 Actual Respiratory Rate 18 Actual Respiratory Rate 21 Actual Respiratory Rate 18 Actual Respiratory Rate 18 Actual Respiratory Rate 18 Actual Respiratory Rate 18 Actual Respiratory Rate 18 Actual Respiratory Rate 18 Actual Respiratory Rate 18 Actual Respiratory Rate 18 Actual Respiratory Rate 18 Positive End Expiratory 5 Pressure Positive End Expiratory 5 Pressure Positive End Expiratory 5 Pressure Positive End Expiratory 5 Pressure Positive End Expiratory 5 Pressure Positive End Expiratory 5 Pressure Positive End Expiratory 5 Pressure Positive End Expiratory 5 Pressure Positive End Expiratory 5 Pressure Positive End Expiratory 5 Pressure Positive End Expiratory 5 Pressure Positive End Expiratory 5 Pressure Peak Inspiratory Airway 16 Pressure Peak Inspiratory Airway 16 Pressure Peak Inspiratory Airway 29 Pressure Peak Inspiratory Airway 26 Pressure Peak Inspiratory Airway 30 Pressure Peak Inspiratory Airway 29 Pressure Peak Inspiratory Airway 32 Pressure Peak Inspiratory Airway 30 Pressure Peak Inspiratory Airway 28 Pressure Peak Inspiratory Airway 29 Pressure Peak Inspiratory Airway 23 Pressure Results - Laboratory Findings CBC and BMP: 10/05/17 03:55 10/05/17 03:55 ABG ABG pH 7.34 pH Units (7.32-7.45) 10/04/17 05:01 ABG pCO2 50 mmHg (35-45) H 10/04/17 05:01 ABG pO2 82 mmHg (85-104) L 10/04/17 05:01 ABG O2 Saturation 95 % (95-98) 10/04/17 05:01 PT/INR, D-dimer PT 16.4 Seconds (9.4-12.1) H 10/03/17 11:03 Abnormal lab findings: Abnormal lab results Hgb 11.3 g/dL (11.5-15.4) L 10/05/17 03:55 MCHC 31.4 g/dL (31.6-35.5) L 10/05/17 03:55 RDW 14.6 % (11.5-14.5) H 10/05/17 03:55 Nucleated RBCs/100 WBC 0.4 /100 WBC (0) H 10/05/17 03:55 PT 16.4 Seconds (9.4-12.1) H 10/03/17 11:03 ABG pCO2 50 mmHg (35-45) H 10/04/17 05:01 ABG pO2 82 mmHg (85-104) L 10/04/17 05:01 ABG Total CO2 28 mEq/L (20-26) H 10/04/17 05:01 Potassium 3.3 mEq/L (3.5-5.1) L 10/05/17 03:55 Chloride 108 mEq/L (98-107) H 10/05/17 03:55 BUN 42 mg/dL (8-23) H 10/05/17 03:55 Est GFR (Non-Af Amer) 57 (> 60) L 10/05/17 03:55 BUN/Creatinine Ratio 45 (6-26) H 10/05/17 03:55 Glucose 266 mg/dL (70-105) H 10/05/17 03:55 POC Glucose 231 (58-89) H 10/04/17 23:48 Calculated Osmolality 318 (280-300) H 10/05/17 03:55 B-Natriuretic Peptide 306 pg/mL (Less than 100) H 10/03/17 04:27 Serum Total Protein 6.0 g/dL (6.4-8.9) L 10/03/17 21:08 Albumin 2.9 g/dL (3.5-5.7) L 10/03/17 21:08 Albumin/Globulin Ratio 0.9 (1.1-2.2) L 10/03/17 21:08 Salicylates < 5.0 mg/dL (15.0-30.0) L 10/03/17 11:03 Acetaminophen < 1.0 mcg/mL (10-30) L 10/04/17 12:06 - Microbiology Findings Microbiology Findings: Microbiology, Last 48 Hours 10/03/17 11:40 Urine Culture - Final Urine,Clean Catch No growth. 10/03/17 09:05 Legionella Antigen - Final Urine,Clean Catch Streptococcus pneumoniae Antigen (M - Final - Clinical Findings Intake & Output: Intake & Output 10/04/17 10/04/17 10/05/17 15:59 23:59 07:59 Intake Total 388 / 388 564 / 564 527 / 527 Output Total 1450 / 1450 400 / 400 150 / 150 Balance -1062 / -1062 164 / 164 377 / 377 Weight 75.8 kg Consult Discharge Plan - Plan Referrals: Karlee Anguiano, METAL GAUGE MAKER [Primary Care Provider] - <Jack Cabello - Last Filed: 10/05/17 23:26> Date of Encounter: 10/05/17 Objective PUL Vital signs: Last Vital Signs Temp 97.7 F 10/05/17 19:35 Pulse 94 10/05/17 22:00 Resp 18 10/05/17 23:04 BP 129/94 10/05/17 23:04 Pulse Ox 96 10/05/17 23:04 Results - Laboratory Findings CBC and BMP: 10/05/17 03:55 10/05/17 03:55 ABG ABG pH 7.34 pH Units (7.32-7.45) 10/04/17 05:01 ABG pCO2 50 mmHg (35-45) H 10/04/17 05:01 ABG pO2 82 mmHg (85-104) L 10/04/17 05:01 ABG O2 Saturation 95 % (95-98) 10/04/17 05:01 PT/INR, D-dimer PT 16.4 Seconds (9.4-12.1) H 10/03/17 11:03 Abnormal lab findings: Abnormal lab results Hgb 11.3 g/dL (11.5-15.4) L 10/05/17 03:55 MCHC 31.4 g/dL (31.6-35.5) L 10/05/17 03:55 RDW 14.6 % (11.5-14.5) H 10/05/17 03:55 Nucleated RBCs/100 WBC 0.4 /100 WBC (0) H 10/05/17 03:55 PT 16.4 Seconds (9.4-12.1) H 10/03/17 11:03 ABG pCO2 50 mmHg (35-45) H 10/04/17 05:01 ABG pO2 82 mmHg (85-104) L 10/04/17 05:01 ABG Total CO2 28 mEq/L (20-26) H 10/04/17 05:01 Potassium 3.3 mEq/L (3.5-5.1) L 10/05/17 03:55 Chloride 108 mEq/L (98-107) H 10/05/17 03:55 BUN 42 mg/dL (8-23) H 10/05/17 03:55 Est GFR (Non-Af Amer) 57 (> 60) L 10/05/17 03:55 BUN/Creatinine Ratio 45 (6-26) H 10/05/17 03:55 Glucose 266 mg/dL (70-105) H 10/05/17 03:55 POC Glucose 231 (58-89) H 10/04/17 23:48 Calculated Osmolality 318 (280-300) H 10/05/17 03:55 B-Natriuretic Peptide 306 pg/mL (Less than 100) H 10/03/17 04:27 Serum Total Protein 6.0 g/dL (6.4-8.9) L 10/03/17 21:08 Albumin 2.9 g/dL (3.5-5.7) L 10/03/17 21:08 Albumin/Globulin Ratio 0.9 (1.1-2.2) L 10/03/17 21:08 Salicylates < 5.0 mg/dL (15.0-30.0) L 10/03/17 11:03 Acetaminophen < 1.0 mcg/mL (10-30) L 10/04/17 12:06 - Microbiology Findings Microbiology Findings: Microbiology, Last 48 Hours 10/03/17 11:03 Blood Culture - Preliminary Peripheral Venipuncture No growth. 10/03/17 11:03 Blood Culture - Preliminary Peripheral Venipuncture No growth. 10/03/17 11:40 Urine Culture - Final Urine,Clean Catch No growth. - Clinical Findings Intake & Output: Intake & Output 10/05/17 10/05/17 10/05/17 07:59 15:59 23:59 Intake Total 527 / 527 360 / 360 Output Total 150 / 150 1100 / 1100 Balance 377 / 377 -740 / -740 Weight 75.8 kg - Attending Attestation Attending Attestation I saw and evaluated this patient and my medical decision-making was reviewed with the Resident Physician. I agree with the documented findings, disposition and treatment plan as described except to the extent set forth below. We independently had [id number] contact with the patient Patient seen and examined at bedside Labs, radiology, chart personally reviewed. Management was reviewed during multidisciplinary critical care rounds. MILK TREATER:Patient is completely awake and following commands Pulm: Patient presentation is more towards pulmonary edema than COPD exacerbation low tidal volume strategy acceptable oxygenation and ventilation . To continue with bronchodilators and steroids will descalate the steroids fast . To continue gentle diuresis . Patient failed SBT after 2 hrs will try again later 10/05 Patient passed SBT extubated today will do BIPAP overnight . Cards:Patient is hemodynamically stable ,on diuresis as tolerated . FEN-GI: Diet as per dietary Renal:Labs and output reviewed ID:To continue mono therapy levaquin Heme/Onc:DVT prophylaxis Endo: Glucose Monitored Integ/MSK: Skin Care per routine ICU Nursing Protocol to prevent ulcers. Lines: All lines examined without evidence of infection : Dispo: Critically ill high chance of reintubation CODE: Full Code
[2017-10-05] MEDS ORDERED: Bumetanide 1 MG/4 ML VIAL IVP ONE (08:08)
[2017-10-05] MEDS ORDERED: Potassium Chloride 40 MEQ, Lidocaine 1% 2 ML in D5% in Water 500 ML IVPB ONE (09:43)
[2017-10-05] MEDS: Chlorhexidine Rinse 15 ML MOUTHWASH MM SCH ×2 (09:48→20:39)
[2017-10-05] MEDS: Pantoprazole 40 MG VIAL IVP SCH (09:48)
[2017-10-05] MEDS: Insulin LISPRO 300 UNITS/3 ML VIAL SQ SCH ×2 (14:37→18:33)
[2017-10-05] MEDS: MethylPREDNISolone 40 MG/ML VIAL IVP SCH (18:31)
[2017-10-06] MEDS: Insulin LISPRO 300 UNITS/3 ML VIAL SQ SCH ×3 (00:01→11:44)
[2017-10-06] MEDS: Ipratropium/Albuterol Neb 3 ML IH SCH ×5 (03:45→20:33)
[2017-10-06 03:55] LABS: Basophils # 0.1 K/mcL (0.0-0.2); Basophils % 0.9 %; Hematocrit 33.6 % (35.3-44.9); Hemoglobin 10.7 g/dL (11.5-15.4); Immature Granulocytes % 6.3 % (0-4); Lymphocytes % 6.3 %; Mean Corpuscular HGB Conc 31.8 g/dL (31.6-35.5); Mean Corpuscular Hemoglobin 28.9 pg (28.0-33.3); Mean Corpuscular Volume 90.8 fL (83.0-100.0); Mean Platelet Volume 11.5 fL (9.4-12.4); Monocytes # 0.4 K/mcL (0.0-1.3); Monocytes % 2.7 %; Platelet Count 283 K/mcL (140-400); Red Cell Distribution Width 14.8 % (11.5-14.5); Segmented Neutrophils % 83.8 %
[2017-10-06 03:56] LABS: VBG HCO3 34 mEq/L (21-27); VBG PCO2 51 mmHg (41-51); VBG PH 7.44 pH Units (7.32-7.42); VBG PO2 96 mmHg (25-50)
[2017-10-06 04:17] LABS: BUN/Creatinine Ratio 43 (6-26); Blood Urea Nitrogen 38 mg/dL (8-23); Calcium 9.4 mg/dL (8.6-10.3); Carbon Dioxide 33 mEq/L (23-29); Chloride 107 mEq/L (98-107); Glucose 159 mg/dL (70-105); Magnesium 2.3 mg/dL (1.6-2.6); Osmolality,Calculated 312 (280-300); Potassium 3.9 mEq/L (3.5-5.1); Sodium 145 mEq/L (136-145); eGFR For African Americans > 60 (> 60); eGFR For Non-African Americans > 60 (> 60)
[2017-10-06 04:25] LABS: Hypersegmented Neutrophils Present (Not Present); Platelet Estimate Normal (Normal); Toxic Granulation Present (Not Present)
[2017-10-06] MEDS: *HR* Heparin 5,000 UNIT/ML VIAL SQ SCH ×2 (06:03→17:50)
[2017-10-06] MEDS ORDERED: traMADol 50 MG TABLET PO PRN (08:43)
[2017-10-06] MEDS: Levofloxacin 750 MG/150 ML 750 MG/150 ML BAG IVPB SCH (08:43)
[2017-10-06] MEDS: MethylPREDNISolone 40 MG/ML VIAL IVP SCH (08:44)
[2017-10-06] MEDS: Pantoprazole 40 MG VIAL IVP SCH (08:44)
[2017-10-06] MEDS: Chlorhexidine Rinse 15 ML MOUTHWASH MM SCH (08:44)
--- NOTE | 2017-10-06 09:19 | Pulmonology Progress Note ---
<Abhijeet Crystal - Last Filed: 10/06/17 09:14> Date of Encounter: 10/06/17 Time of Encounter: 09:15 Assessment and Plan (1) Acute respiratory failure Current Visit: Yes Status: Acute Acidosis corrected; The patient was extubated without incident CPAP'ed overnight without issue Continue Levaquin Qualifiers: Respiratory failure complication: hypoxia Qualified Code(s): J96.01 - Acute respiratory failure with hypoxia (2) Pneumonia Current Visit: Yes Status: Suspected Negative respiratory panel Continuing Levaquin. WBC increased overnight, possibly secondary to steroid use Depending on clinical picture tomorrow, modification of Abx may be necessary There is no growth on cultures Qualifiers: Pneumonia type: due to Pneumococcus Laterality: bilateral Lung location: lower lobe of lung Qualified Code(s): J13 - Pneumonia due to Streptococcus pneumoniae (3) Sepsis Current Visit: Yes Status: Suspected Sepsis secondary to pna, improved WBC 15.5 with increased immature neutrophils, afebrile and improved HR and RR We will continue to monitor, watch vitals Qualifiers: Sepsis type: Pneumococcus Qualified Code(s): A40.3 - Sepsis due to Streptococcus pneumoniae (4) SHARRI (acute kidney injury) Current Visit: Yes Status: Acute Acute kidney Injury secondary to septic shock Serum Cr 0.88, eGFR 60. Urine output 150 over 24hr We will avoid nephrotoxic agents (5) CHF (congestive heart failure) Current Visit: Yes Status: Acute HFpEF, improved fluid balance Echo shows LVEF 55% I/O 4975/4725, B+250 Maintain strict I/Os Qualifiers: Heart failure type: diastolic Heart failure chronicity: chronic Qualified Code(s): I50.32 - Chronic diastolic (congestive) heart failure (6) Atrial fibrillation Current Visit: Yes Status: Acute On heparin SQ (takes Xarelto 15mg at home) started on Cardizem drip We will begin to transition the patient to PO cardizem at 30mg PO QID Qualifiers: Atrial fibrillation type: unspecified Qualified Code(s): I48.91 - Unspecified atrial fibrillation (7) COPD (chronic obstructive pulmonary disease) Current Visit: Yes Status: Acute Has O2 at home uses occasionally at night per chart review. Cont RT with albuterol, symbicort, steroid BiPAP overnight as needed Qualifiers: COPD type: chronic bronchitis Chronic bronchitis type: unspecified Qualified Code(s): J42 - Unspecified chronic bronchitis (8) DVT prophylaxis Current Visit: Yes Status: Acute SQ Heparin Subjective Principal diagnosis: Acute resp failure Interval history: The patient is in good spirits today. She says that she feels as though her breathing has improved quite a lot, and she feels good. She does admit to back pain which is chronic from lying in bed, and she would like to exercise more. Objective PUL Vital signs: Last Vital Signs Temp 98.8 F 10/06/17 08:13 Pulse 85 10/06/17 06:00 Resp 20 10/06/17 08:16 BP 132/61 10/06/17 06:00 Pulse Ox 96 10/06/17 08:16 General appearance: no acute distress Eyes: nonicteric ENT: oropharynx moist Mallampati (class): 2 Neck: supple Effort: normal Auscultation: bilateral: diminished breath sounds, other (generally course throughout) Cardiovascular: irregular rhythm (afib, rate controlled) Gastrointestinal: normoactive bowel sounds, soft, non-tender, non-distended Integumentary: normal Extremities: no cyanosis, no edema, no clubbing Musculoskeletal: no deformities normal mental status, non-focal exam mood appropriate, affect normal Results - Laboratory Findings CBC and BMP: 10/06/17 03:42 10/06/17 03:42 ABG ABG pH 7.34 pH Units (7.32-7.45) 10/04/17 05:01 ABG pCO2 50 mmHg (35-45) H 10/04/17 05:01 ABG pO2 82 mmHg (85-104) L 10/04/17 05:01 ABG O2 Saturation 95 % (95-98) 10/04/17 05:01 PT/INR, D-dimer PT 16.4 Seconds (9.4-12.1) H 10/03/17 11:03 Abnormal lab findings: Abnormal lab results WBC 15.5 K/mcL (4.3-11.1) H D 10/06/17 03:42 RBC 3.70 M/mcL (3.82-4.97) L 10/06/17 03:42 Hgb 10.7 g/dL (11.5-15.4) L 10/06/17 03:42 Hct 33.6 % (35.3-44.9) L 10/06/17 03:42 RDW 14.8 % (11.5-14.5) H 10/06/17 03:42 Immature Gran % 6.3 % (0-4) H 10/06/17 03:42 Neutrophils # 13.0 K/mcL (1.6-8.9) H 10/06/17 03:42 Nucleated RBCs/100 WBC 0.4 /100 WBC (0) H 10/05/17 03:55 Hypersegmented Neuts Present (Not Present) A 10/06/17 03:42 Toxic Granulation Present (Not Present) A 10/06/17 03:42 PT 16.4 Seconds (9.4-12.1) H 10/03/17 11:03 ABG pCO2 50 mmHg (35-45) H 10/04/17 05:01 ABG pO2 82 mmHg (85-104) L 10/04/17 05:01 ABG Total CO2 28 mEq/L (20-26) H 10/04/17 05:01 VBG pH 7.44 pH Units (7.32-7.42) H 10/06/17 03:53 VBG pO2 96 mmHg (25-50) H 10/06/17 03:53 VBG HCO3 34 mEq/L (21-27) H 10/06/17 03:53 Carbon Dioxide 33 mEq/L (23-29) H 10/06/17 03:42 BUN 38 mg/dL (8-23) H 10/06/17 03:42 BUN/Creatinine Ratio 43 (6-26) H 10/06/17 03:42 Glucose 159 mg/dL (70-105) H 10/06/17 03:42 POC Glucose 109 (58-89) H 10/05/17 23:27 Calculated Osmolality 312 (280-300) H 10/06/17 03:42 B-Natriuretic Peptide 306 pg/mL (Less than 100) H 10/03/17 04:27 Serum Total Protein 6.0 g/dL (6.4-8.9) L 10/03/17 21:08 Albumin 2.9 g/dL (3.5-5.7) L 10/03/17 21:08 Albumin/Globulin Ratio 0.9 (1.1-2.2) L 10/03/17 21:08 Salicylates < 5.0 mg/dL (15.0-30.0) L 10/03/17 11:03 Acetaminophen < 1.0 mcg/mL (10-30) L 10/04/17 12:06 - Microbiology Findings Microbiology Findings: Microbiology, Last 48 Hours 10/03/17 11:03 Blood Culture - Preliminary Peripheral Venipuncture No growth. 10/03/17 11:03 Blood Culture - Preliminary Peripheral Venipuncture No growth. 10/03/17 11:40 Urine Culture - Final Urine,Clean Catch No growth. - Clinical Findings Intake & Output: Intake & Output 10/05/17 10/06/17 10/06/17 23:59 07:59 15:59 Intake Total 435.5 / 435.5 49.5 / 49.5 Output Total 1325 / 1325 150 / 150 Balance -889.5 / -889.5 -100.5 / -100.5 Weight 77.1 kg Consult Discharge Plan - Plan Referrals: aKrlee Anguiano, WINDOWS APPLICATION ADMINISTRATOR [Primary Care Provider] - <Jack Cabello - Last Filed: 10/06/17 22:04> Date of Encounter: 10/06/17 Objective PUL Vital signs: Last Vital Signs Temp 98.1 F 10/06/17 20:02 Pulse 128 10/06/17 20:02 Resp 16 10/06/17 20:34 BP 132/83 10/06/17 20:02 Pulse Ox 92 10/06/17 20:34 Results - Laboratory Findings CBC and BMP: 10/06/17 03:42 10/06/17 03:42 ABG ABG pH 7.34 pH Units (7.32-7.45) 10/04/17 05:01 ABG pCO2 50 mmHg (35-45) H 10/04/17 05:01 ABG pO2 82 mmHg (85-104) L 10/04/17 05:01 ABG O2 Saturation 95 % (95-98) 10/04/17 05:01 PT/INR, D-dimer PT 16.4 Seconds (9.4-12.1) H 10/03/17 11:03 Abnormal lab findings: Abnormal lab results WBC 15.5 K/mcL (4.3-11.1) H D 10/06/17 03:42 RBC 3.70 M/mcL (3.82-4.97) L 10/06/17 03:42 Hgb 10.7 g/dL (11.5-15.4) L 10/06/17 03:42 Hct 33.6 % (35.3-44.9) L 10/06/17 03:42 RDW 14.8 % (11.5-14.5) H 10/06/17 03:42 Immature Gran % 6.3 % (0-4) H 10/06/17 03:42 Neutrophils # 13.0 K/mcL (1.6-8.9) H 10/06/17 03:42 Nucleated RBCs/100 WBC 0.4 /100 WBC (0) H 10/05/17 03:55 Hypersegmented Neuts Present (Not Present) A 10/06/17 03:42 Toxic Granulation Present (Not Present) A 10/06/17 03:42 PT 16.4 Seconds (9.4-12.1) H 10/03/17 11:03 ABG pCO2 50 mmHg (35-45) H 10/04/17 05:01 ABG pO2 82 mmHg (85-104) L 10/04/17 05:01 ABG Total CO2 28 mEq/L (20-26) H 10/04/17 05:01 VBG pH 7.44 pH Units (7.32-7.42) H 10/06/17 03:53 VBG pO2 96 mmHg (25-50) H 10/06/17 03:53 VBG HCO3 34 mEq/L (21-27) H 10/06/17 03:53 Carbon Dioxide 33 mEq/L (23-29) H 10/06/17 03:42 BUN 38 mg/dL (8-23) H 10/06/17 03:42 BUN/Creatinine Ratio 43 (6-26) H 10/06/17 03:42 Glucose 159 mg/dL (70-105) H 10/06/17 03:42 POC Glucose 152 (58-89) H 10/06/17 17:08 Calculated Osmolality 312 (280-300) H 10/06/17 03:42 B-Natriuretic Peptide 306 pg/mL (Less than 100) H 10/03/17 04:27 Serum Total Protein 6.0 g/dL (6.4-8.9) L 10/03/17 21:08 Albumin 2.9 g/dL (3.5-5.7) L 10/03/17 21:08 Albumin/Globulin Ratio 0.9 (1.1-2.2) L 10/03/17 21:08 Salicylates < 5.0 mg/dL (15.0-30.0) L 10/03/17 11:03 Acetaminophen < 1.0 mcg/mL (10-30) L 10/04/17 12:06 - Microbiology Findings Microbiology Findings: Microbiology, Last 48 Hours 10/03/17 11:03 Blood Culture - Preliminary Peripheral Venipuncture No growth. 10/03/17 11:03 Blood Culture - Preliminary Peripheral Venipuncture No growth. - Clinical Findings Intake & Output: Intake & Output 10/06/17 10/06/17 10/06/17 07:59 15:59 23:59 Intake Total 49.5 / 49.5 546.6 / 546.6 240 / 240 Output Total 150 / 150 200 / 200 Balance -100.5 / -100.5 346.6 / 346.6 240 / 240 Weight 77.1 kg - Attending Attestation Attending Attestation I saw and evaluated this patient and my medical decision-making was reviewed with the Resident Physician. I agree with the documented findings, disposition and treatment plan as described except to the extent set forth below. We independently had [id number] contact with the patient Patient seen and examined at bedside Labs, radiology, chart personally reviewed. Management was reviewed during multidisciplinary critical care rounds. SOLE MOLDING MACHINE OPERATOR:Patient is completely awake and following commands Pulm: Patient presentation is more towards pulmonary edema than COPD exacerbation low tidal volume strategy acceptable oxygenation and ventilation . To continue with bronchodilators and steroids will descalate the steroids fast . To continue gentle diuresis . Patient failed SBT after 2 hrs will try again later 10/05 Patient passed SBT extubated today will do BIPAP overnight . 10/06 Will benefit from BIPAP tonight Cards:Patient is hemodynamically stable ,on diuresis as tolerated . FEN-GI: Diet as per dietary Renal:Labs and output reviewed ID:To continue mono therapy levaquin Heme/Onc:DVT prophylaxis Endo: Glucose Monitored Integ/MSK: Skin Care per routine ICU Nursing Protocol to prevent ulcers. Lines: All lines examined without evidence of infection : Dispo: Stable can be transferred to telemetry CODE: Full Code
[2017-10-06] MEDS ORDERED: D5% in Water 1,000 ML IVC PRN (11:42)
[2017-10-06] MEDS ORDERED: *HR* Dextrose 50 % in Water (Syg) 50 ML SYRINGE IVP PRN (11:42)
[2017-10-06] MEDS ORDERED: Dextrose Gel 15 GM/37.5 ML TUBE PO PRN ×2 (11:42)
[2017-10-06] MEDS ORDERED: Ketorolac 15 MG/ML VIAL IVP PRN (13:17)
[2017-10-06] MEDS ORDERED: Ipratropium/Albuterol Neb 3 ML IH PRN (14:22)
[2017-10-06] MEDS ORDERED: Naloxone 0.4 MG/ML INJ IVP PRN (14:22)
[2017-10-06] MEDS: methylPREDNISolone 125 MG/2 ML VIAL IM SCH (15:10)
[2017-10-06] MEDS: Dexmedetomidine HCl 400 MCG/100 ML MLS IVC SCH (15:10)
[2017-10-06] MEDS ORDERED: 0.9 % Sodium Chloride 250 ML ONE (15:38)
[2017-10-06] MEDS: traMADol 50 MG TABLET PO PRN (15:46)
[2017-10-06] MEDS ORDERED: Insulin LISPRO 300 UNITS/3 ML VIAL SQ SCH ×2 (16:30→21:00)
[2017-10-07] MEDS: Ipratropium/Albuterol Neb 3 ML IH SCH ×7 (00:27→23:43)
[2017-10-07] MEDS: traMADol 50 MG TABLET PO PRN ×2 (00:48→15:19)
[2017-10-07 05:04] LABS: Basophils % 0.1 %; Hematocrit 35.9 % (35.3-44.9); Hemoglobin 11.2 g/dL (11.5-15.4); Immature Granulocytes % 9.9 % (0-4); Lymphocytes # 1.4 K/mcL (0.6-4.6); Lymphocytes % 6.4 %; Mean Corpuscular HGB Conc 31.2 g/dL (31.6-35.5); Mean Corpuscular Hemoglobin 28.9 pg (28.0-33.3); Mean Corpuscular Volume 92.5 fL (83.0-100.0); Mean Platelet Volume 11.5 fL (9.4-12.4); Monocytes # 1.2 K/mcL (0.0-1.3); Monocytes % 5.4 %; Nucleated Red Blood Cells 0.1 /100 WBC (0); Platelet Count 291 K/mcL (140-400); Red Blood Count 3.88 M/mcL (3.82-4.97); Red Cell Distribution Width 14.9 % (11.5-14.5); Segmented Neutrophils % 78.2 %
[2017-10-07] MEDS: *HR* Heparin 5,000 UNIT/ML VIAL SQ SCH (05:12)
[2017-10-07 05:13] LABS: Neutrophils # 17.4 K/mcL (1.6-8.9)
[2017-10-07] MEDS ORDERED: 0.9 % Sodium Chloride 250 ML ONE (05:19)
[2017-10-07 05:27] LABS: Platelet Estimate Normal (Normal)
[2017-10-07 06:06] LABS: BUN/Creatinine Ratio 38 (6-26); Blood Urea Nitrogen 39 mg/dL (8-23); Calcium 9.4 mg/dL (8.6-10.3); Carbon Dioxide 32 mEq/L (23-29); Chloride 106 mEq/L (98-107); Glucose 137 mg/dL (70-105); Osmolality,Calculated 308 (280-300); Potassium 4.1 mEq/L (3.5-5.1); Sodium 143 mEq/L (136-145); eGFR For African Americans > 60 (> 60); eGFR For Non-African Americans 52 (> 60)
[2017-10-07] MEDS ORDERED: Pantoprazole 40 MG VIAL IVP SCH (09:00)
[2017-10-07] MEDS ORDERED: MethylPREDNISolone 40 MG/ML VIAL IVP SCH (09:00)
--- NOTE | 2017-10-07 09:35 | Internal Med Progress Note ---
Date of Encounter: 10/07/17 Time of Encounter: 09:31 - Assessment and plan (1) Atrial fibrillation with rapid ventricular response Current Visit: No Status: Acute Assessment and plan: Patient still in A fib with RVR currently on Cardizem drip at 15mg /hr started on PO Cardizem hoe dose equivalent 90 mg Q six-hour also started on metoprolol 25 mg PO b.i.d. resumed her home medications xarelto to for anticoagulation (2) Acute and chronic respiratory failure with hypoxia Current Visit: Yes Status: Acute Assessment and plan: s/p VDRF Improving cont Duoneb + O2 Off the steroids due to concerning for steroid induced psychosis she does have leukocytosis too which could be due to steroids since patient still have significant reason I am going to start her on steroid nebulizer (3) Sepsis due to undetermined organism Current Visit: No Status: Acute Assessment and plan: Improved she did meet sepsis criteria upon admission (4) COPD exacerbation Current Visit: Yes Status: Acute Assessment and plan: See above (5) Diastolic CHF, acute on chronic Current Visit: Yes Status: Acute Assessment and plan: Improved reviewed echo - showed LVEF 55%, mild diastolic dysfunction switch to PO Lasix resumed other home medications (6) HTN (hypertension) Current Visit: Yes Status: Acute Assessment and plan: Stable the current medication Qualifiers: Hypertension type: essential hypertension Qualified Code(s): I10 - Essential (primary) hypertension (7) SHARRI (acute kidney injury) Current Visit: Yes Status: Acute Assessment and plan: Due to sepsis resolved (8) Pneumonia Current Visit: Yes Status: Suspected Assessment and plan: Improving mostly bacterial so for sputum culture, step pneumonia, Legionella antigen and respiratory viral panel are normal continue empirical antibiotic Levaquin for now her worsening leukocytosis mostly steroid induced and reactive Qualifiers: Pneumonia type: due to Pneumococcus Laterality: bilateral Lung location: lower lobe of lung Qualified Code(s): J13 - Pneumonia due to Streptococcus pneumoniae - Subjective Interval history: Carri Younger is an 82 y/o F with with known PMH of HTN, Chronic afib on Xarelto, Diastolic CHF, chronic hypoxic respiratory failure has 2L O2 that she occasionally uses at night Presented to [facility] ER with 3 days of shortness of breath and fatigue. Patient found to be hypoxemic and placed on bipap, with no improvement of symptoms pt was intubated; subsequently transferred to [facility]. Pt was admitted to ICU and started on high dose IV steroids and empirical abx. Pt got extubated on 10/05/17 since then patient has been doing well. Was transferred to regular telemetry for further care. Patient also happened to be in a fib with RVR so patient was placed on Cardizem drip. Patient today mention she is feeling little better, denied any chest pain. Her shortness of breath also seems to be better however she is still not back to baseline - Constitutional Vitals: Temp Pulse Resp BP Pulse Ox 98.2 F 93 18 119/56 96 10/07/17 06:42 10/07/17 06:42 10/07/17 07:28 10/07/17 06:42 10/07/17 07:28 General appearance: Present: A&O X 0, A&O X 3, answers questions appropriately - Head Head exam: Present: atraumatic, normal inspection - Neck Neck exam general surgery: Present: supple - Respiratory Respiratory exam: Present: decreased breath sounds, wheezes (moderate). Absent : rales, respiratory distress, rhonchi - Cardiovascular Cardiovascular exam: Present: irregular rhythm, +S1, +S2, tachycardia. Absent: systolic murmur - GI/Abdominal GI/Abdominal exam: Present: normal bowel sounds, soft. Absent: rebound, rigid, tenderness - Extremities Exam Extremities exam: Absent: calf tenderness, pedal edema, tenderness - Back Exam Back exam: Absent: CVA tenderness (L), CVA tenderness (R) - Neurological Exam Neurological exam: Present: alert, oriented X3 - Psychiatric Psychiatric exam: Present: normal affect, normal mood - Skin Skin exam: Absent: rash Internal Medicine: Result - Labs CBC & Chem 7: 10/07/17 04:19 10/07/17 04:19 Labs: Short CBC 10/07/17 Range/Units 04:19 WBC 22.2 H (4.3-11.1) K/mcL Hgb 11.2 L (11.5-15.4) g/dL Hct 35.9 (35.3-44.9) % Plt Count 291 (140-400) K/mcL Neutrophils # 17.4 H (1.6-8.9) K/mcL BMP 10/07/17 04:19 Sodium 143 Potassium 4.1 Chloride 106 Carbon Dioxide 32 H BUN 39 H Creatinine 1.03 Glucose 137 H Calcium 9.4 - ABG Interpretation ABG results: ABG ABG pH 7.34 pH Units (7.32-7.45) 10/04/17 05:01 ABG pCO2 50 mmHg (35-45) H 10/04/17 05:01 ABG pO2 82 mmHg (85-104) L 10/04/17 05:01 ABG O2 Saturation 95 % (95-98) 10/04/17 05:01 PT/INR, D-dimer PT 16.4 Seconds (9.4-12.1) H 10/03/17 11:03 Consult Discharge Plan - Plan Referrals: Karlee Anguiano, BELL NECK HAMMERER [Primary Care Provider] -
[2017-10-07] MEDS: Budesonide Neb 0.5 MG/2 ML IH SCH ×3 (10:51→19:54)
[2017-10-07] MEDS: *HR* Rivaroxaban 15 MG TABLET PO SCH (17:55)
[2017-10-08 04:13] LABS: Hemoglobin 11.1 g/dL (11.5-15.4); Immature Granulocytes % 8.8 % (0-4); Lymphocytes # 1.3 K/mcL (0.6-4.6); Lymphocytes % 5.9 %; Mean Corpuscular HGB Conc 30.8 g/dL (31.6-35.5); Mean Corpuscular Hemoglobin 28.8 pg (28.0-33.3); Mean Corpuscular Volume 93.3 fL (83.0-100.0); Monocytes # 0.8 K/mcL (0.0-1.3); Monocytes % 3.7 %; Nucleated Red Blood Cells 0.1 /100 WBC (0); Platelet Count 284 K/mcL (140-400); Red Blood Count 3.86 M/mcL (3.82-4.97); Red Cell Distribution Width 15.1 % (11.5-14.5); Segmented Neutrophils % 81.6 %
[2017-10-08] MEDS: Ipratropium/Albuterol Neb 3 ML IH SCH ×6 (04:29→23:21)
[2017-10-08 04:36] LABS: BUN/Creatinine Ratio 41 (6-26); Blood Urea Nitrogen 36 mg/dL (8-23); Calcium 9.5 mg/dL (8.6-10.3); Carbon Dioxide 35 mEq/L (23-29); Chloride 104 mEq/L (98-107); Glucose 153 mg/dL (70-105); Magnesium 2.6 mg/dL (1.6-2.6); Osmolality,Calculated 305 (280-300); Sodium 142 mEq/L (136-145); eGFR For African Americans > 60 (> 60); eGFR For Non-African Americans > 60 (> 60)
[2017-10-08 04:53] LABS: Platelet Estimate Normal (Normal)
[2017-10-08] MEDS: Budesonide Neb 0.5 MG/2 ML IH SCH ×2 (07:21→20:06)
[2017-10-08] MEDS ORDERED: Levofloxacin 750 MG/150 ML 750 MG/150 ML BAG IVPB SCH (10:00)
--- NOTE | 2017-10-08 14:29 | Internal Med Progress Note ---
Date of Encounter: 10/08/17 Time of Encounter: 10:20 - Assessment and plan (1) Atrial fibrillation with rapid ventricular response Current Visit: No Status: Acute Assessment and plan: Improved.. Rate controlled Cont Metoprolol 25 BID + Cardizem 360 Cont her home medications xarelto to for anticoagulation (2) Acute and chronic respiratory failure with hypoxia Current Visit: Yes Status: Acute Assessment and plan: s/p VDRF Improving cont Duoneb + O2 Off the steroids due to concerning for steroid induced psychosis she does have leukocytosis too which could be due to steroids Cont steroid nebulizer (3) Pneumonia Current Visit: Yes Status: Suspected Assessment and plan: Improving mostly bacterial so for sputum culture, step pneumonia, Legionella antigen and respiratory viral panel are normal continue empirical antibiotic Levaquin for now her worsening leukocytosis mostly steroid induced and reactive Improving WBC Qualifiers: Pneumonia type: due to Pneumococcus Laterality: bilateral Lung location: lower lobe of lung Qualified Code(s): J13 - Pneumonia due to Streptococcus pneumoniae (4) Sepsis due to undetermined organism Current Visit: No Status: Acute Assessment and plan: Improved she did meet sepsis criteria upon admission (5) COPD exacerbation Current Visit: Yes Status: Acute Assessment and plan: See above (6) Diastolic CHF, acute on chronic Current Visit: Yes Status: Acute Assessment and plan: Improved reviewed echo - showed LVEF 55%, mild diastolic dysfunction switch to PO Lasix resumed other home medications (7) HTN (hypertension) Current Visit: Yes Status: Acute Assessment and plan: Stable the current medication Qualifiers: Hypertension type: essential hypertension Qualified Code(s): I10 - Essential (primary) hypertension (8) SHARRI (acute kidney injury) Current Visit: Yes Status: Acute Assessment and plan: Due to sepsis resolved - Subjective Interval history: Carri Younger is an 82 y/o F with with known PMH of HTN, Chronic afib on Xarelto, Diastolic CHF, chronic hypoxic respiratory failure has 2L O2 that she occasionally uses at night Presented to [place] ER with 3 days of shortness of breath and fatigue. Patient found to be hypoxemic and placed on bipap, with no improvement of symptoms pt was intubated; subsequently transferred to [facility]. Pt was admitted to ICU and started on high dose IV steroids and empirical abx. Pt got extubated on 10/05/17 since then patient has been doing well. Was transferred to regular telemetry for further care. Patient also happened to be in a fib with RVR so patient was placed on Cardizem drip. Patient today mention she is feeling much better, denied any chest pain. Her shortness of breath also seems to be better. No events over night. She is off the Cardizem gtt since y/d. - Constitutional Vitals: Temp Pulse Resp BP Pulse Ox 98.6 F 80 16 106/63 96 10/08/17 10:12 10/08/17 10:12 10/08/17 11:13 10/08/17 10:12 10/08/17 11:13 General appearance: Present: A&O X 0, A&O X 3, answers questions appropriately - Head Head exam: Present: atraumatic, normal inspection - Neck Neck exam general surgery: Present: supple - Respiratory Respiratory exam: Present: decreased breath sounds, wheezes (mild to moderate). Absent: rales, respiratory distress, rhonchi - Cardiovascular Cardiovascular exam: Present: RRR, +S1, +S2. Absent: tachycardia - GI/Abdominal GI/Abdominal exam: Present: normal bowel sounds, soft. Absent: rebound, rigid, tenderness - Extremities Exam Extremities exam: Absent: calf tenderness, pedal edema, tenderness - Back Exam Back exam: Absent: CVA tenderness (L), CVA tenderness (R) - Neurological Exam Neurological exam: Present: alert, oriented X3 - Psychiatric Psychiatric exam: Present: normal affect, normal mood - Skin Skin exam: Absent: rash Internal Medicine: Result - Labs CBC & Chem 7: 10/08/17 03:50 10/08/17 03:50 Labs: Short CBC 10/08/17 Range/Units 03:50 WBC 22.1 H (4.3-11.1) K/mcL Hgb 11.1 L (11.5-15.4) g/dL Hct 36.0 (35.3-44.9) % Plt Count 284 (140-400) K/mcL Neutrophils # 18.0 H (1.6-8.9) K/mcL BMP 10/08/17 03:50 Sodium 142 Potassium 5.0 Chloride 104 Carbon Dioxide 35 H BUN 36 H Creatinine 0.88 Glucose 153 H Calcium 9.5 - ABG Interpretation ABG results: ABG ABG pH 7.34 pH Units (7.32-7.45) 10/04/17 05:01 ABG pCO2 50 mmHg (35-45) H 10/04/17 05:01 ABG pO2 82 mmHg (85-104) L 10/04/17 05:01 ABG O2 Saturation 95 % (95-98) 10/04/17 05:01 PT/INR, D-dimer PT 16.4 Seconds (9.4-12.1) H 10/03/17 11:03 Consult Discharge Plan - Plan Referrals: Karlee Anguiano, KARSON [Primary Care Provider] - 10/12/17 10:20 am ( )
[2017-10-08] MEDS: *HR* Rivaroxaban 15 MG TABLET PO SCH (17:08)
[2017-10-08] MEDS ORDERED: Diltiazem CD (24hr) 180 MG CAPSULE PO SCH (18:00)
[2017-10-09] MEDS: Ipratropium/Albuterol Neb 3 ML IH SCH ×3 (04:57→11:06)
[2017-10-09 06:37] LABS: Basophils % 0.1 %; Eosinophils % 0.1 %; Hematocrit 39.6 % (35.3-44.9); Hemoglobin 12.1 g/dL (11.5-15.4); Immature Granulocytes % 6.9 % (0-4); Lymphocytes # 1.9 K/mcL (0.6-4.6); Lymphocytes % 9.5 %; Mean Corpuscular HGB Conc 30.6 g/dL (31.6-35.5); Mean Corpuscular Hemoglobin 28.7 pg (28.0-33.3); Mean Corpuscular Volume 94.1 fL (83.0-100.0); Mean Platelet Volume 11.5 fL (9.4-12.4); Monocytes # 0.7 K/mcL (0.0-1.3); Monocytes % 3.6 %; Neutrophils # 15.7 K/mcL (1.6-8.9); Nucleated Red Blood Cells 0.1 /100 WBC (0); Platelet Count 256 K/mcL (140-400); Red Blood Count 4.21 M/mcL (3.82-4.97); Red Cell Distribution Width 15.1 % (11.5-14.5); Segmented Neutrophils % 79.8 %
[2017-10-09 06:48] LABS: BUN/Creatinine Ratio 43 (6-26); Blood Urea Nitrogen 34 mg/dL (8-23); Carbon Dioxide 38 mEq/L (23-29); Chloride 104 mEq/L (98-107); Glucose 84 mg/dL (70-105); Osmolality,Calculated 305 (280-300); Potassium 4.3 mEq/L (3.5-5.1); Sodium 144 mEq/L (136-145); eGFR For African Americans > 60 (> 60); eGFR For Non-African Americans > 60 (> 60)
[2017-10-09 07:24] LABS: Platelet Estimate Normal (Normal)
[2017-10-09] MEDS: Budesonide Neb 0.5 MG/2 ML IH SCH (07:26)
--- NOTE | 2017-10-09 09:02 | Discharge Summary ---
- NOTES TO OUTPATIENT PROVIDER Notes to Outpatient Provider: CBC in 3 days on Sunday Date of Encounter: 10/09/17 Time of Encounter: 08:54 - Discharge Diagnosis (1) Atrial fibrillation with rapid ventricular response Priority: Primary Status: Acute (2) Acute and chronic respiratory failure with hypoxia Priority: Primary Status: Acute (3) Pneumonia Priority: Primary Status: Suspected Qualifiers: Pneumonia type: due to Pneumococcus Laterality: bilateral Lung location: lower lobe of lung Qualified Code(s): J13 - Pneumonia due to Streptococcus pneumoniae (4) Sepsis due to undetermined organism Priority: Primary Status: Acute (5) COPD exacerbation Priority: Primary Status: Acute (6) Diastolic CHF, acute on chronic Priority: Secondary Status: Acute (7) HTN (hypertension) Priority: Secondary Status: Acute Qualifiers: Hypertension type: essential hypertension Qualified Code(s): I10 - Essential (primary) hypertension (8) SHARRI (acute kidney injury) Priority: Secondary Status: Acute Hospital course: aCrri Younger is an 82 y/o F with with known PMH of HTN, Chronic afib on Xarelto, Diastolic CHF, chronic hypoxic respiratory failure has 2L O2 that she occasionally uses at night Presented to [place] ER with 3 days of shortness of breath and fatigue. Patient found to be hypoxemic and placed on bipap, with no improvement of symptoms pt was intubated; subsequently transferred to [facility]. Pt was admitted to ICU and started on high dose IV steroids and empirical abx. Pt got extubated on 10/05/17 since then patient has been doing well. Was transferred to regular telemetry for further care. Patient also happened to be in a fib with RVR so patient was placed on Cardizem drip initially then switched to PO Cardizem and PO Metoprolol. Her symptoms improved and she feels like back to baseline. Her WBC was severely elevated mostly reactive with high dose steroids. Now WBC started trending down slowly. Pt is currently on Neb Steroids for her COPD exacerbation. Pt was evaluated by PT / OT , who recommend SNF placement. So will d/c her ECF today in stable condition. - Time Spent with Patient Total time spent providing and/or coordinating discharge services: - Discharge Medications Prescriptions: Levofloxacin [Levaquin] 500 mg PO DAILY #3 tablet Home Medications: traMADol [Ultram] 50 mg PO TID PRN 12/26/15 [History] Rivaroxaban [Xarelto] 20 mg PO DAILY #30 tablet 12/30/15 [Rx] Albuterol Sulfate [Ventolin Hfa] 2 puff IH Q4H PRN 10/02/17 [History] Umeclidinium Brm/Vilanterol Tr [Anoro Ellipta 62.5-25 Mcg INH] 1 puff IH DAILY 10/02/17 [History] Diltiazem HCl [Diltiazem 24Hr Cd] 360 mg PO DAILY 10/03/17 [History] Budesonide Neb [Pulmicort Neb] 0.5 mg IH BIDR inhsol 10/09/17 [Rx] Docusate [Colace] 100 mg PO BID PRN capsule 10/09/17 [Rx] Furosemide [Lasix] 20 mg PO DAILY #20 tablet 10/09/17 [Rx] Ipratropium/Albuterol Neb [Duoneb] 3 ml IH [id number] PRN 15 Days inhsol 10/09/17 [Rx] Levofloxacin [Levaquin] 500 mg PO DAILY #3 tablet 10/09/17 [Rx] Metoprolol [Lopressor] 25 mg PO BID tablet 10/09/17 [Rx] Omeprazole [PriLOSEC] 20 mg PO DAILY@0630 capsule. 10/09/17 [Rx] Allergies/Adverse Reactions: 3 Allergy/AdvReac Type Severity Reaction Status Date / Time Penicillins [PCN] Allergy Rash Verified 12/26/15 13:41 Date of admission: 10/03/17 00:26 Primary care physician: Karlee Anguiano CNP Consults: 10/06/17 09:40 Consult to Physical Therapy [CONS] Routine Comment: Evaluate, develop and implement POC Reason for Consult: deconditioning 10/08/17 11:25 OT [Consult to Occupational Therapy] [CONS] Routine Comment: Evaluate, develop and implement POC Reason for Consult: deconditioning Does patient have active BEDREST order?: No Is patient medically & hemodynamically stable?: Yes Patient assessed for mobility or mobilized this visit?: No PT [Consult to Physical Therapy] [CONS] Routine Comment: Evaluate, develop and implement POC Reason for Consult: deconditioning Does patient have active BEDREST order?: No Is patient medically & hemodynamically stable?: Yes Patient assessed for mobility or mobilized this visit?: No 10/09/17 07:43 Consult to Algorithm Design Engineer [CONS] Routine Reason for SW Consult: needs ecf - Constitutional Vitals: Temp Pulse Resp BP Pulse Ox 98.2 F 82 18 115/77 94 10/09/17 06:53 10/09/17 06:53 10/09/17 06:53 10/09/17 06:53 10/09/17 06:53 General appearance: Present: A&O X 3, answers questions appropriately - Head Head exam: Present: atraumatic, normal inspection - Neck Neck exam general surgery: Present: supple - Respiratory Respiratory exam: Present: decreased breath sounds, wheezes (mild). Absent: rales, respiratory distress, rhonchi - Cardiovascular Cardiovascular exam: Present: irregular rhythm, +S1, +S2. Absent: systolic murmur, tachycardia - GI/Abdominal GI/Abdominal exam: Present: normal bowel sounds, soft. Absent: rebound, rigid, tenderness - Extremities Exam Extremities exam: Present: pedal edema (Trace). Absent: calf tenderness, tenderness - Back Exam Back exam: Absent: CVA tenderness (L), CVA tenderness (R) - Neurological Exam Neurological exam: Present: alert, oriented X3 - Psychiatric Psychiatric exam: Present: normal affect, normal mood - Skin Skin exam: Absent: rash - Patient Status Disposition: Transfer SNF Condition: Good Overall status at discharge: patient is back to baseline - Discharge Instructions Follow Up With: Karlee Anguiano CNP [Primary Care Provider] - 10/12/17 10:20 am ( ) - Diet and Activity Activity: as per physical therapy, wear oxygen at all times
--- NOTE | 2017-10-09 09:06 | Physician Discharge Referral ---
ExtendedCare Referral Info Transfer To: ECF Provider in Charge after Transfer: PCP Institutional Level of Care: Skilled - Diagnosis (1) Atrial fibrillation with rapid ventricular response Status: Acute (2) Acute and chronic respiratory failure with hypoxia Status: Acute (3) Pneumonia Status: Suspected (4) Sepsis due to undetermined organism Status: Acute (5) COPD exacerbation Status: Acute (6) Diastolic CHF, acute on chronic Status: Acute (7) HTN (hypertension) Status: Acute (8) SHARRI (acute kidney injury) Status: Acute - Transfer Medications Prescriptions: Furosemide [Lasix] 20 mg PO DAILY #20 tablet Levofloxacin [Levaquin] 500 mg PO DAILY #3 tablet Home Medications: traMADol [Ultram] 50 mg PO TID PRN 12/26/15 [History] Rivaroxaban [Xarelto] 20 mg PO DAILY #30 tablet 12/30/15 [Rx] Albuterol Sulfate [Ventolin Hfa] 2 puff IH Q4H PRN 10/02/17 [History] Umeclidinium Brm/Vilanterol Tr [Anoro Ellipta 62.5-25 Mcg INH] 1 puff IH DAILY 10/02/17 [History] Diltiazem HCl [Diltiazem 24Hr Cd] 360 mg PO DAILY 10/03/17 [History] Budesonide Neb [Pulmicort Neb] 0.5 mg IH BIDR inhsol 10/09/17 [Rx] Docusate [Colace] 100 mg PO BID PRN capsule 10/09/17 [Rx] Furosemide [Lasix] 20 mg PO DAILY #20 tablet 10/09/17 [Rx] Ipratropium/Albuterol Neb [Duoneb] 3 ml IH [id number] PRN 15 Days inhsol 10/09/17 [Rx] Levofloxacin [Levaquin] 500 mg PO DAILY #3 tablet 10/09/17 [Rx] Metoprolol [Lopressor] 25 mg PO BID tablet 10/09/17 [Rx] Omeprazole [PriLOSEC] 20 mg PO DAILY@0630 capsule. 10/09/17 [Rx] Allergies/Adverse Reactions: 3 Allergy/AdvReac Type Severity Reaction Status Date / Time Penicillins [PCN] Allergy Rash Verified 12/26/15 13:41 - Respiratory Orders Smoking Cessation: Smoking cessation has been advised. For more information, call the [place] Tobacco Quit Line at 5-814-CHGK-NOW. CERTIFICATION: I certify that the transfer of the above named patient to an Extended Care Facility is necessary for the continuing treatment of the diagnosis listed. The above information is true and accurate reflection of patient's current condition. Confidential - Redisclosure prohibited without a patient's written consent.
[2017-10-09 11:01] VITALS: BP 123/58
== END 2017-10-09 15:03 | DRG 871 ==
LOC: ICNU 10-03 00:26 → SUATTDRO 10-03 00:26 → 2ANU 10-06 15:03
PROVIDERS: ADMIT Internal Medicine; ATTEND Family Medicine